=== PATIENT | female | born 1945 ===

== ENCOUNTER 2020-03-06 14:52 | Inpatient (IN) ==
[2020-03-06] MEDS ORDERED: DEXTROSE 50% 25 GM/50 ML VIAL IV PRN (21:48)
[2020-03-06] MEDS ORDERED: ONDANSETRON 4 MG/2 ML VIAL IV PRN (21:48)
[2020-03-06] MEDS ORDERED: GLUCAGON 1 MG VIAL IM PRN ×2 (21:48)
[2020-03-06] MEDS ORDERED: cefTRIAXone 1,000 MG in SODIUM CHLORIDE 0.9% 100 ML IV SCH (22:00)
[2020-03-06] MEDS ORDERED: AZITHROMYCIN INJ 500 MG in SODIUM CHLORIDE 0.9% 250 ML IV SCH (22:00)
[2020-03-07] MEDS: SODIUM CHLORIDE 0.9% 1,000 ML IV SCH ×2 (01:04→09:12)
[2020-03-07] MEDS: ENOXAPARIN 40 MG/0.4 ML SYRINGE SUBCUT SCH ×2 (01:18→22:32)
[2020-03-07 01:28] LABS: Calcium 8.7 MG/DL (8.5-10.1); Osmolality,Calculated 251.5 MOS/KG (273-304)
[2020-03-07 05:02] LABS: Basophils % 0.2 % (0.0-0.8); Hemoglobin 10.9 GM/DL (12.0-16.0); Immature Granulocytes % 0.6 %; Immature Granulocytes Absolute 0.03 #; Lymphocytes # 0.4 10*3/uL (1.4-4.0); Lymphocytes % 7.4 % (21.3-54.2); Mean Corpuscular HGB Conc 34.1 GM/DL (32-36); Mean Corpuscular Volume 88.2 FL (87-102); Mean Platelet Volume 10.4 FL (9.6-12.0); Monocytes % 8.4 % (1.7-12.7); Neutrophils % 83.4 % (38.7-73.9); Platelet Count 151 T/CUMM (130-400); Red Blood Count 3.63 MC/CUMM (3.8-5.5); Red Cell Distribution Width 12.5 % (9.3-17.3); White Blood Count 4.9 T/CUMM (4-12)
[2020-03-07 06:20] LABS: Apearance,Urine Slightly Hazy (Clear); Bilirubin,Urine Negative (Negative); Blood, Urine Negative (Negative); Glucose,Urine (UA) Negative (Negative); Ketones,Urine 20 mg/dL (Negative); Nitrite,Urine Negative (Negative); Protein,Urine 100 MG/DL; RBC,Urine 1 /HPF (0-4); Squamous Epithelial Cell,Urine Occasional /HPF (0-10); Urine Color Yellow (Yellow); Urine Specific Gravity 1.013 (1.001-1.035); Urine Urobilinogen < 2.0 EU/DL (0.2-1.0); WBC,Urine 1 /HPF (0-6)
[2020-03-07] MEDS: ACETAMINOPHEN 325 MG TABLET PO PRN (08:15)
[2020-03-07] MEDS: PANTOPRAZOLE 40 MG TABLET PO SCH (08:23)
[2020-03-07] MEDS: cefTRIAXone 1,000 MG in SYRINGE 1 EACH IV SCH (08:35)
[2020-03-07] MEDS: AZITHROMYCIN INJ 500 MG in SODIUM CHLORIDE 0.9% 250 ML IV SCH (08:36)
[2020-03-07 09:58] LABS: Band Neutrophils 4 % (0-10); Burr Cells 1+; Lymphocytes 2 % (20-55); Ovalocytes Few; Platelet Estimate Adequate; Segmented Neutrophils 92 % (50-85); Total Cells Counted 100
[2020-03-07 12:49] LABS: Albumin 2.3 G/DL (3.4-5.0); Bilirubin,Total 0.4 MG/DL (0.2-1.0); Calcium 7.3 MG/DL (8.5-10.1); Osmolality,Calculated 262.8 MOS/KG (273-304); Risk Ratio 1.64; Thyroid Stimulating Hormone 0.978 uIU/ml (0.358-3.74); Total Protein 6.2 G/DL (6.4-8.3); VLDL CHOLESTEROL 21.4 MG/DL
[2020-03-08 07:16] LABS: Basophils % 0.3 % (0.0-0.8); Hemoglobin 12.8 GM/DL (12.0-16.0); Immature Granulocytes % 1.1 %; Immature Granulocytes Absolute 0.07 #; Lymphocytes # 0.5 10*3/uL (1.4-4.0); Lymphocytes % 7.5 % (21.3-54.2); Mean Corpuscular HGB Conc 34.6 GM/DL (32-36); Mean Corpuscular Volume 86.4 FL (87-102); Mean Platelet Volume 10.1 FL (9.6-12.0); Monocytes % 6.5 % (1.7-12.7); Neutrophils % 84.6 % (38.7-73.9); Platelet Count 204 T/CUMM (130-400); Red Blood Count 4.28 MC/CUMM (3.8-5.5); Red Cell Distribution Width 12.9 % (9.3-17.3); White Blood Count 6.1 T/CUMM (4-12)
[2020-03-08 07:24] LABS: Calcium 7.7 MG/DL (8.5-10.1); Osmolality,Calculated 262.7 MOS/KG (273-304)
[2020-03-08] MEDS: AZITHROMYCIN INJ 500 MG in SODIUM CHLORIDE 0.9% 250 ML IV SCH (08:20)
[2020-03-08] MEDS: PANTOPRAZOLE 40 MG TABLET PO SCH (08:20)
[2020-03-08] MEDS: cefTRIAXone 1,000 MG in SYRINGE 1 EACH IV SCH (08:20)
[2020-03-08] MEDS: INSULIN REGULAR 100 UNIT/ML SUBCUT SCH ×2 (12:41→17:53)
[2020-03-08 12:51] LABS: Burr Cells Few; Ovalocytes Slight; Polychromasia Slight
[2020-03-08 12:52] LABS: Hypochromasia Slight; Platelet Estimate Adequate
[2020-03-08] MEDS: ENOXAPARIN 40 MG/0.4 ML SYRINGE SUBCUT SCH (21:32)
[2020-03-09] MEDS: INSULIN REGULAR 100 UNIT/ML SUBCUT SCH ×4 (00:11→17:20)
[2020-03-09] MEDS: cefTRIAXone 1,000 MG in SYRINGE 1 EACH IV SCH (08:00)
[2020-03-09] MEDS: PANTOPRAZOLE 40 MG TABLET PO SCH (08:00)
[2020-03-09] MEDS: AZITHROMYCIN INJ 500 MG in SODIUM CHLORIDE 0.9% 250 ML IV SCH (08:00)
[2020-03-09 08:57] LABS: Basophils % 0.1 % (0.0-0.8); Hematocrit 38.8 VOL% (35.7-47.0); Hemoglobin 13.1 GM/DL (12.0-16.0); Immature Granulocytes % 1.1 %; Immature Granulocytes Absolute 0.12 #; Lymphocytes # 0.5 10*3/uL (1.4-4.0); Lymphocytes % 5.1 % (21.3-54.2); Mean Corpuscular HGB Conc 33.8 GM/DL (32-36); Mean Corpuscular Volume 88.4 FL (87-102); Mean Platelet Volume 9.6 FL (9.6-12.0); Neutrophils % 85.7 % (38.7-73.9); Platelet Count 237 T/CUMM (130-400); Red Blood Count 4.39 MC/CUMM (3.8-5.5); Red Cell Distribution Width 12.9 % (9.3-17.3); White Blood Count 10.7 T/CUMM (4-12)
[2020-03-09 09:22] LABS: Calcium 8.2 MG/DL (8.5-10.1); Osmolality,Calculated 261.7 MOS/KG (273-304)
[2020-03-09] MEDS: ENOXAPARIN 40 MG/0.4 ML SYRINGE SUBCUT SCH ×2 (11:28→21:36)
[2020-03-10] MEDS: INSULIN REGULAR 100 UNIT/ML SUBCUT SCH ×4 (02:49→18:17)
[2020-03-10] MEDS: ACETAMINOPHEN 325 MG TABLET PO PRN ×2 (05:30→20:21)
[2020-03-10 06:33] LABS: Basophils % 0.2 % (0.0-0.8); Eosinophils % 0.2 % (0.00-10.9); Hematocrit 37.6 VOL% (35.7-47.0); Hemoglobin 12.6 GM/DL (12.0-16.0); Immature Granulocytes % 1.7 %; Immature Granulocytes Absolute 0.22 #; Lymphocytes # 0.5 10*3/uL (1.4-4.0); Lymphocytes % 3.5 % (21.3-54.2); Mean Corpuscular HGB Conc 33.5 GM/DL (32-36); Mean Corpuscular Volume 89.5 FL (87-102); Mean Platelet Volume 9.7 FL (9.6-12.0); Monocytes % 7.5 % (1.7-12.7); Neutrophils % 86.9 % (38.7-73.9); Platelet Count 253 T/CUMM (130-400); Red Cell Distribution Width 13.1 % (9.3-17.3)
[2020-03-10 06:39] LABS: Calcium 8.3 MG/DL (8.5-10.1); Osmolality,Calculated 275.1 MOS/KG (273-304)
[2020-03-10 06:54] LABS: Hypochromasia 1+; Lymphocytes 4 % (20-55); Platelet Estimate Adequate; Segmented Neutrophils 90 % (50-85); Total Cells Counted 100
[2020-03-10] MEDS: AZITHROMYCIN 250 MG TABLET PO SCH (08:52)
[2020-03-10] MEDS: PANTOPRAZOLE 40 MG TABLET PO SCH (08:52)
[2020-03-10] MEDS: cefTRIAXone 1,000 MG in SYRINGE 1 EACH IV SCH (08:52)
[2020-03-10] MEDS: ENOXAPARIN 40 MG/0.4 ML SYRINGE SUBCUT SCH ×2 (09:25→22:01)
[2020-03-10] MEDS: LACTATED RINGERS 1,000 ML IV SCH ×2 (09:40→17:40)
[2020-03-10 22:50] LABS: ABG Base Excess -8.8 MMOL/L (-2.5-2.5); ABG HCO3 17.3 MMOL/L (20-26); ABG Oxygen Saturation 83.4 % (95-100); ABG PCO2 27.6 MM HG (35-48); ABG PH 7.353 (7.35-7.45); ABG PO2 55.6 MM HG (80-95); ABG TCO2 13.1 MMOL/L (23-27)
[2020-03-11] MEDS: INSULIN REGULAR 100 UNIT/ML SUBCUT SCH ×4 (00:03→17:04)
[2020-03-11] MEDS: LACTATED RINGERS 1,000 ML IV SCH ×3 (00:08→16:56)
[2020-03-11 04:25] LABS: ABG Base Excess -1.6 MMOL/L (-2.5-2.5); ABG HCO3 22.8 MMOL/L (20-26); ABG Oxygen Saturation 85.7 % (95-100); ABG PCO2 35.3 MM HG (35-48); ABG PO2 56.6 MM HG (80-95); ABG TCO2 19.1 MMOL/L (23-27); Allen Test Positive; Pt O2 Delivery Device Other
[2020-03-11 06:29] LABS: Basophils % 0.2 % (0.0-0.8); Eosinophils # 0.1 10*3/uL (0.0-0.87); Eosinophils % 0.3 % (0.00-10.9); Hematocrit 41.1 VOL% (35.7-47.0); Hemoglobin 13.4 GM/DL (12.0-16.0); Immature Granulocytes % 2.1 %; Immature Granulocytes Absolute 0.37 #; Lymphocytes # 0.7 10*3/uL (1.4-4.0); Lymphocytes % 4.1 % (21.3-54.2); Mean Corpuscular HGB Conc 32.6 GM/DL (32-36); Mean Corpuscular Volume 91.3 FL (87-102); Mean Platelet Volume 9.9 FL (9.6-12.0); Monocytes % 6.3 % (1.7-12.7); NRBC # 0.02 10*3/uL; Platelet Count 176 T/CUMM (130-400); Red Cell Distribution Width 13.2 % (9.3-17.3); White Blood Count 17.7 T/CUMM (4-12)
[2020-03-11 06:46] LABS: Calcium 8.5 MG/DL (8.5-10.1); Osmolality,Calculated 279.8 MOS/KG (273-304)
[2020-03-11 06:53] LABS: Lymphocytes 7 % (20-55); Segmented Neutrophils 88 % (50-85); Total Cells Counted 100
[2020-03-11 06:54] LABS: Hypochromasia Slight; Microcytosis Slight; Polychromasia Slight
[2020-03-11 06:55] LABS: Platelet Estimate Adequate
[2020-03-11] MEDS: AZITHROMYCIN 250 MG TABLET PO SCH (08:47)
[2020-03-11] MEDS: cefTRIAXone 1,000 MG in SYRINGE 1 EACH IV SCH (08:47)
[2020-03-11] MEDS: PANTOPRAZOLE 40 MG TABLET PO SCH (08:48)
[2020-03-11] MEDS: ENOXAPARIN 40 MG/0.4 ML SYRINGE SUBCUT SCH ×2 (09:21→22:06)
[2020-03-11] MEDS ORDERED: ETOMIDATE 20 MG/10 ML VIAL IV ONE (09:50)
[2020-03-11] MEDS ORDERED: SUCCINYLCHOLINE 200 MG/10 ML VIAL IV ONE (09:50)
[2020-03-11] MEDS ORDERED: SODIUM CHLORIDE 0.9% 1,000 ML IV ONE (10:12)
[2020-03-11] MEDS: ROCURONIUM 500 MG in SODIUM CHLORIDE 0.9% 500 ML IV PRN ×2 (10:45→15:32)
[2020-03-11] MEDS: fentaNYL INJ 1,250 MCG in SODIUM CHLORIDE 0.9% 225 ML IV PRN (10:48)
[2020-03-11] MEDS ORDERED: fentaNYL 100 MCG/2 ML VIAL IV ONE (11:00)
[2020-03-11] MEDS ORDERED: ROCURONIUM 100 MG/10 ML VIAL IV ONE (11:00)
[2020-03-11] MEDS ORDERED: SODIUM CHLORIDE 0.9% 1,000 ML IV PRN (12:24)
[2020-03-11] MEDS ORDERED: DIGOXIN 0.5 MG/2 ML AMP IV ONE ×2 (16:18→18:00)
[2020-03-12] MEDS: LACTATED RINGERS 1,000 ML IV SCH ×3 (00:56→18:29)
[2020-03-12] MEDS: INSULIN REGULAR 100 UNIT/ML SUBCUT SCH ×4 (02:04→17:27)
[2020-03-12] MEDS: ROCURONIUM 500 MG in SODIUM CHLORIDE 0.9% 500 ML IV PRN ×2 (03:15→14:15)
[2020-03-12 04:39] LABS: ABG HCO3 18.7 MMOL/L (20-26); ABG Oxygen Saturation 99.4 % (95-100); ABG PCO2 55.4 MM HG (35-48)
[2020-03-12] MEDS: fentaNYL INJ 1,250 MCG in SODIUM CHLORIDE 0.9% 225 ML IV PRN ×2 (04:50→18:22)
[2020-03-12 04:58] LABS: Basophils % 0.1 % (0.0-0.8); Eosinophils # 0.2 10*3/uL (0.0-0.87); Eosinophils % 1.7 % (0.00-10.9); Hematocrit 35.9 VOL% (35.7-47.0); Hemoglobin 10.9 GM/DL (12.0-16.0); Immature Granulocytes % 1.6 %; Immature Granulocytes Absolute 0.19 #; Lymphocytes # 0.5 10*3/uL (1.4-4.0); Lymphocytes % 4.2 % (21.3-54.2); Mean Corpuscular HGB Conc 30.4 GM/DL (32-36); Mean Corpuscular Volume 98.6 FL (87-102); Mean Platelet Volume 10.5 FL (9.6-12.0); Monocytes % 5.9 % (1.7-12.7); NRBC # 0.02 10*3/uL; Neutrophils % 86.5 % (38.7-73.9); Platelet Count 128 T/CUMM (130-400); Red Blood Count 3.64 MC/CUMM (3.8-5.5); Red Cell Distribution Width 13.7 % (9.3-17.3); White Blood Count 11.6 T/CUMM (4-12)
[2020-03-12 05:37] LABS: Eosinophils 1 % (0-10); Lymphocytes 5 % (20-55); Segmented Neutrophils 91 % (50-85); Total Cells Counted 100
[2020-03-12 05:38] LABS: Hypochromasia 1+; Microcytosis Slight; Ovalocytes Slight; Platelet Estimate Normal
[2020-03-12 07:14] LABS: Osmolality,Calculated 285.7 MOS/KG (273-304)
[2020-03-12] MEDS: cefTRIAXone 1,000 MG in SYRINGE 1 EACH IV SCH (08:40)
[2020-03-12] MEDS: ENOXAPARIN 40 MG/0.4 ML SYRINGE SUBCUT SCH ×2 (09:00→22:20)
[2020-03-12] MEDS: PANTOPRAZOLE 40 MG TABLET PO SCH (12:14)
[2020-03-12] MEDS: DIGOXIN 0.5 MG/2 ML AMP IV SCH (12:15)
[2020-03-13] MEDS: INSULIN REGULAR 100 UNIT/ML SUBCUT SCH ×4 (01:16→17:43)
[2020-03-13] MEDS: ROCURONIUM 500 MG in SODIUM CHLORIDE 0.9% 500 ML IV PRN ×2 (01:51→16:02)
[2020-03-13] MEDS: LACTATED RINGERS 1,000 ML IV SCH ×3 (02:57→20:44)
[2020-03-13 05:18] LABS: ABG Base Excess -7.9 MMOL/L (-2.5-2.5); ABG HCO3 18.8 MMOL/L (20-26); ABG Oxygen Saturation 98.2 % (95-100); ABG PCO2 43.2 MM HG (35-48); ABG PH 7.257 (7.35-7.45); ABG PO2 147.4 MM HG (80-95); ABG TCO2 20.1 MMOL/L (23-27)
[2020-03-13 05:35] LABS: Basophils % 0.3 % (0.0-0.8); Eosinophils # 0.2 10*3/uL (0.0-0.87); Eosinophils % 2.4 % (0.00-10.9); Hemoglobin 9.7 GM/DL (12.0-16.0); Immature Granulocytes % 1.8 %; Immature Granulocytes Absolute 0.14 #; Lymphocytes # 0.5 10*3/uL (1.4-4.0); Lymphocytes % 6.3 % (21.3-54.2); Mean Corpuscular HGB Conc 31.3 GM/DL (32-36); Monocytes % 10.1 % (1.7-12.7); Neutrophils % 79.1 % (38.7-73.9); Platelet Count 157 T/CUMM (130-400); Red Blood Count 3.23 MC/CUMM (3.8-5.5); Red Cell Distribution Width 13.6 % (9.3-17.3); White Blood Count 7.6 T/CUMM (4-12)
[2020-03-13 06:06] LABS: Calcium 8.1 MG/DL (8.5-10.1); Osmolality,Calculated 290.5 MOS/KG (273-304)
[2020-03-13] MEDS: cefTRIAXone 1,000 MG in SYRINGE 1 EACH IV SCH (08:29)
[2020-03-13] MEDS: DIGOXIN 0.5 MG/2 ML AMP IV SCH (08:30)
[2020-03-13] MEDS: PANTOPRAZOLE 40 MG VIAL IV SCH (08:35)
[2020-03-13] MEDS: ENOXAPARIN 40 MG/0.4 ML SYRINGE SUBCUT SCH (09:00)
[2020-03-13] MEDS: fentaNYL INJ 1,250 MCG in SODIUM CHLORIDE 0.9% 225 ML IV PRN ×2 (09:42→23:02)
[2020-03-13] MEDS ORDERED: ENOXAPARIN 40 MG/0.4 ML SYRINGE SUBCUT SCH (10:00)
[2020-03-13] MEDS: CARBIDOPA/LEVODOPA 25-100 MG TABLET PO SCH (20:44)
[2020-03-13] MEDS: levETIRAcetam LIQUID 100 MG/ML 30 ML/BOTTLE PO SCH (20:44)
[2020-03-13] MEDS: SODIUM BICARB INJ 50 MEQ in SODIUM CHLORIDE 0.45% 1,000 ML IV SCH (20:44)
[2020-03-14] MEDS: LACTATED RINGERS 1,000 ML IV SCH ×3 (01:37→17:24)
[2020-03-14] MEDS: INSULIN REGULAR 100 UNIT/ML SUBCUT SCH ×5 (01:37→17:28)
[2020-03-14 05:35] LABS: ABG Base Excess -10.9 MMOL/L (-2.5-2.5); ABG HCO3 18.8 MMOL/L (20-26); ABG Oxygen Saturation 97.3 % (95-100); ABG PCO2 60.8 MM HG (35-48); ABG PO2 113.6 MM HG (80-95); ABG TCO2 20.7 MMOL/L (23-27)
[2020-03-14 05:37] LABS: ABG PH 7.108 (7.35-7.45)
[2020-03-14 05:39] LABS: Basophils % 0.3 % (0.0-0.8); Eosinophils % 0.4 % (0.00-10.9); Hematocrit 35.1 VOL% (35.7-47.0); Hemoglobin 10.7 GM/DL (12.0-16.0); Immature Granulocytes % 2.9 %; Immature Granulocytes Absolute 0.32 #; Lymphocytes # 0.3 10*3/uL (1.4-4.0); Lymphocytes % 3.1 % (21.3-54.2); Mean Corpuscular HGB Conc 30.5 GM/DL (32-36); Mean Corpuscular Volume 99.4 FL (87-102); Mean Platelet Volume 10.3 FL (9.6-12.0); Monocytes % 12.9 % (1.7-12.7); NRBC # 0.02 10*3/uL; Neutrophils % 80.4 % (38.7-73.9); Platelet Count 237 T/CUMM (130-400); Red Blood Count 3.53 MC/CUMM (3.8-5.5); Red Cell Distribution Width 13.7 % (9.3-17.3); White Blood Count 10.9 T/CUMM (4-12)
[2020-03-14 06:01] LABS: Calcium 8.7 MG/DL (8.5-10.1)
[2020-03-14] MEDS ORDERED: SODIUM BICARBONATE 50 MEQ/50 ML VIAL IV ONE (06:10)
[2020-03-14] MEDS ORDERED: SODIUM POLYSTYRENE SULFATE 15 GM/60 ML BOTTLE PO ONE (06:44)
[2020-03-14 06:57] LABS: Lymphocytes 5 % (20-55); Microcytosis Slight; Platelet Estimate Adequate; Segmented Neutrophils 76 % (50-85); Total Cells Counted 100
[2020-03-14] MEDS: PANTOPRAZOLE 40 MG VIAL IV SCH (08:02)
[2020-03-14 08:03] LABS: ABG Base Excess -5.9 MMOL/L (-2.5-2.5); ABG HCO3 19.6 MMOL/L (20-26); ABG Oxygen Saturation 98.9 % (95-100); ABG PCO2 43.6 MM HG (35-48); ABG PH 7.282 (7.35-7.45); ABG TCO2 19.2 MMOL/L (23-27)
[2020-03-14] MEDS: CARBIDOPA/LEVODOPA 25-100 MG TABLET PO SCH ×3 (08:03→21:04)
[2020-03-14] MEDS: cefTRIAXone 1,000 MG in SYRINGE 1 EACH IV SCH (08:03)
[2020-03-14] MEDS: DIGOXIN 0.5 MG/2 ML AMP IV SCH (08:03)
[2020-03-14] MEDS: levETIRAcetam LIQUID 100 MG/ML 30 ML/BOTTLE PO SCH ×2 (08:04→21:04)
[2020-03-14] MEDS: ROCURONIUM 500 MG in SODIUM CHLORIDE 0.9% 500 ML IV PRN ×2 (08:57→23:26)
[2020-03-14] MEDS: SODIUM BICARB INJ 50 MEQ in SODIUM CHLORIDE 0.45% 1,000 ML IV SCH (09:28)
[2020-03-14] MEDS: ENOXAPARIN 30 MG/0.3 ML SYRINGE SUBCUT SCH (09:39)
[2020-03-14] MEDS ORDERED: fentaNYL INJ 2,500 MCG in SODIUM CHLORIDE 0.9% 450 ML IV PRN (12:29)
[2020-03-14] MEDS: fentaNYL INJ 1,250 MCG in SODIUM CHLORIDE 0.9% 225 ML IV PRN (13:15)
[2020-03-14] MEDS ORDERED: SODIUM POLYSTYRENE SULFATE 15 GM/60 ML BOTTLE PO PRN (14:52)
[2020-03-14] MEDS: SODIUM BICARB INJ 100 MEQ in SODIUM CHLORIDE 0.45% 1,000 ML IV SCH (17:24)
[2020-03-15] MEDS: INSULIN REGULAR 100 UNIT/ML SUBCUT SCH ×5 (00:35→23:50)
[2020-03-15] MEDS: LACTATED RINGERS 1,000 ML IV SCH ×2 (00:35→09:37)
[2020-03-15] MEDS: fentaNYL INJ 1,250 MCG in SODIUM CHLORIDE 0.9% 225 ML IV PRN (04:42)
[2020-03-15 05:22] LABS: ABG Base Excess -5.9 MMOL/L (-2.5-2.5); ABG HCO3 19.6 MMOL/L (20-26); ABG Oxygen Saturation 97.7 % (95-100); ABG PCO2 51.9 MM HG (35-48); ABG PH 7.231 (7.35-7.45); ABG TCO2 20.6 MMOL/L (23-27)
[2020-03-15] MEDS: SODIUM BICARB INJ 100 MEQ in SODIUM CHLORIDE 0.45% 1,000 ML IV SCH ×2 (05:26→13:49)
[2020-03-15 05:34] LABS: Basophils % 0.1 % (0.0-0.8); Eosinophils # 0.1 10*3/uL (0.0-0.87); Eosinophils % 1.3 % (0.00-10.9); Hematocrit 29.3 VOL% (35.7-47.0); Hemoglobin 9.3 GM/DL (12.0-16.0); Immature Granulocytes % 2.8 %; Immature Granulocytes Absolute 0.25 #; Lymphocytes # 0.3 10*3/uL (1.4-4.0); Lymphocytes % 3.3 % (21.3-54.2); Mean Corpuscular HGB Conc 31.7 GM/DL (32-36); Mean Corpuscular Volume 98.3 FL (87-102); Mean Platelet Volume 10.6 FL (9.6-12.0); Monocytes % 10.9 % (1.7-12.7); Neutrophils % 81.6 % (38.7-73.9); Platelet Count 223 T/CUMM (130-400); Red Blood Count 2.98 MC/CUMM (3.8-5.5); Red Cell Distribution Width 13.7 % (9.3-17.3)
[2020-03-15 05:59] LABS: Band Neutrophils 6 % (0-10); Eosinophils 2 % (0-10); Hypochromasia 1+; Lymphocytes 2 % (20-55); Ovalocytes Slight; Platelet Estimate Adequate; Segmented Neutrophils 74 % (50-85); Total Cells Counted 100
[2020-03-15 06:00] LABS: Microcytosis Slight
[2020-03-15 06:12] LABS: Alanine Aminotransferase < 6 U/L (13-56); Albumin 1.2 G/DL (3.4-5.0); Alkaline Phosphatase 113 U/L (45-117); Aspartate Amino Transferase 33 U/L (0-37); Bilirubin,Total < 0.39 MG/DL (0.2-1.0); Blood Urea Nitrogen 97 MG/DL (7-18); Calcium 7.9 MG/DL (8.5-10.1); Estimated Glom Filtration Rate 10 ML/MIN; Glucose 178 MG/DL (74-106); Osmolality,Calculated 312.4 MOS/KG (273-304); Total Protein 5.1 G/DL (6.4-8.3)
[2020-03-15] MEDS: CARBIDOPA/LEVODOPA 25-100 MG TABLET PO SCH ×3 (08:12→20:21)
[2020-03-15] MEDS: DIGOXIN 0.5 MG/2 ML AMP IV SCH (08:14)
[2020-03-15] MEDS: levETIRAcetam LIQUID 100 MG/ML 30 ML/BOTTLE PO SCH ×2 (08:14→20:21)
[2020-03-15] MEDS: PANTOPRAZOLE 40 MG VIAL IV SCH (08:17)
[2020-03-15] MEDS: ENOXAPARIN 30 MG/0.3 ML SYRINGE SUBCUT SCH (09:01)
[2020-03-15] MEDS ORDERED: ROCURONIUM 1,000 MG in SODIUM CHLORIDE 0.9% 175 ML IV PRN (15:11)
[2020-03-15] MEDS: ROCURONIUM 500 MG in SODIUM CHLORIDE 0.9% 500 ML IV PRN (16:23)
[2020-03-15] MEDS: SODIUM BICARB INJ 150 MEQ in STERILE WATER INJ 850 ML IV SCH (16:23)
[2020-03-15] MEDS: fentaNYL INJ 2,500 MCG in SODIUM CHLORIDE 0.9% 75 ML IV PRN (20:53)
[2020-03-16 04:02] LABS: ABG Base Excess -1.3 MMOL/L (-2.5-2.5); ABG HCO3 23.4 MMOL/L (20-26); ABG PCO2 49.5 MM HG (35-48); ABG PH 7.315 (7.35-7.45); ABG TCO2 23.5 MMOL/L (23-27)
[2020-03-16 04:28] LABS: Basophils % 0.2 % (0.0-0.8); Eosinophils # 0.1 10*3/uL (0.0-0.87); Eosinophils % 1.2 % (0.00-10.9); Hemoglobin 8.8 GM/DL (12.0-16.0); Immature Granulocytes % 3.1 %; Immature Granulocytes Absolute 0.29 #; Lymphocytes # 0.3 10*3/uL (1.4-4.0); Lymphocytes % 2.9 % (21.3-54.2); Mean Corpuscular HGB Conc 32.6 GM/DL (32-36); Mean Corpuscular Volume 97.1 FL (87-102); Mean Platelet Volume 10.7 FL (9.6-12.0); Monocytes % 10.7 % (1.7-12.7); Neutrophils % 81.9 % (38.7-73.9); Platelet Count 217 T/CUMM (130-400); Red Blood Count 2.78 MC/CUMM (3.8-5.5); Red Cell Distribution Width 13.5 % (9.3-17.3); White Blood Count 9.4 T/CUMM (4-12)
[2020-03-16 04:40] LABS: Calcium 7.9 MG/DL (8.5-10.1); Osmolality,Calculated 313.5 MOS/KG (273-304)
[2020-03-16 04:56] LABS: Hypochromasia 1+; Microcytosis Slight; Nucleated Red Blood Cells 2 (0-5); Platelet Estimate Adequate; Segmented Neutrophils 91 % (50-85); Total Cells Counted 100
[2020-03-16] MEDS: INSULIN REGULAR 100 UNIT/ML SUBCUT SCH ×4 (05:02→23:29)
[2020-03-16] MEDS: HEPARIN DRIP 25,000 UNITS/500 ML PREMIX IV SCH (05:52)
[2020-03-16] MEDS: fentaNYL INJ 2,500 MCG in SODIUM CHLORIDE 0.9% 75 ML IV PRN ×2 (06:27→20:25)
[2020-03-16] MEDS: PANTOPRAZOLE 40 MG VIAL IV SCH (08:37)
[2020-03-16] MEDS: DIGOXIN 0.5 MG/2 ML AMP IV SCH (08:38)
[2020-03-16] MEDS: CARBIDOPA/LEVODOPA 25-100 MG TABLET PO SCH ×3 (08:39→21:34)
[2020-03-16] MEDS: SODIUM BICARB INJ 150 MEQ in STERILE WATER INJ 850 ML IV SCH (09:12)
[2020-03-16] MEDS: levETIRAcetam LIQUID 100 MG/ML 30 ML/BOTTLE PO SCH ×2 (12:02→21:34)
[2020-03-16] MEDS: SODIUM BICARBONATE 650 MG TABLET PER TUBE SCH (21:34)
[2020-03-17] MEDS: INSULIN REGULAR 100 UNIT/ML SUBCUT SCH ×5 (00:30→17:06)
[2020-03-17] MEDS: HEPARIN DRIP 25,000 UNITS/500 ML PREMIX IV SCH ×2 (02:20→21:55)
[2020-03-17 05:37] LABS: ABG Base Excess 0.1 MMOL/L (-2.5-2.5); ABG HCO3 25.9 MMOL/L (20-26); ABG Oxygen Saturation 98.2 % (95-100); ABG PCO2 47.7 MM HG (35-48); ABG PH 7.353 (7.35-7.45); ABG PO2 140.9 MM HG (80-95); ABG TCO2 27.4 MMOL/L (23-27)
[2020-03-17 06:18] LABS: Basophils % 0.3 % (0.0-0.8); Eosinophils # 0.1 10*3/uL (0.0-0.87); Eosinophils % 1.1 % (0.00-10.9); Hematocrit 26.5 VOL% (35.7-47.0); Hemoglobin 8.6 GM/DL (12.0-16.0); Immature Granulocytes Absolute 0.58 #; Lymphocytes # 0.5 10*3/uL (1.4-4.0); Lymphocytes % 3.9 % (21.3-54.2); Mean Corpuscular HGB Conc 32.5 GM/DL (32-36); Mean Platelet Volume 11.3 FL (9.6-12.0); Monocytes % 11.1 % (1.7-12.7); NRBC # 0.02 10*3/uL; Neutrophils % 78.6 % (38.7-73.9); Platelet Count 272 T/CUMM (130-400); Red Blood Count 2.76 MC/CUMM (3.8-5.5); Red Cell Distribution Width 13.6 % (9.3-17.3); White Blood Count 11.5 T/CUMM (4-12)
[2020-03-17 06:37] LABS: Band Neutrophils 3 % (0-10); Eosinophils 2 % (0-10); Lymphocytes 3 % (20-55); Segmented Neutrophils 80 % (50-85); Total Cells Counted 100
[2020-03-17 06:38] LABS: Hypochromasia 1+; Microcytosis Slight; Platelet Estimate Adequate
[2020-03-17 07:43] LABS: Calcium 7.2 MG/DL (8.5-10.1); Osmolality,Calculated 315.7 MOS/KG (273-304)
[2020-03-17] MEDS: fentaNYL INJ 2,500 MCG in SODIUM CHLORIDE 0.9% 75 ML IV PRN (08:18)
[2020-03-17] MEDS: PANTOPRAZOLE 40 MG VIAL IV SCH (08:30)
[2020-03-17] MEDS: levETIRAcetam LIQUID 100 MG/ML 30 ML/BOTTLE PO SCH ×2 (08:30→21:41)
[2020-03-17] MEDS: CARBIDOPA/LEVODOPA 25-100 MG TABLET PO SCH ×3 (08:30→21:42)
[2020-03-17] MEDS: DIGOXIN 0.5 MG/2 ML AMP IV SCH (08:30)
[2020-03-17] MEDS: SODIUM BICARBONATE 650 MG TABLET PER TUBE SCH ×3 (08:30→21:42)
[2020-03-18] MEDS: INSULIN REGULAR 100 UNIT/ML SUBCUT SCH ×4 (01:31→17:24)
[2020-03-18 04:20] LABS: ABG Base Excess 1.3 MMOL/L (-2.5-2.5); ABG HCO3 25.6 MMOL/L (20-26); ABG Oxygen Saturation 98.8 % (95-100); ABG PCO2 50.5 MM HG (35-48); ABG PH 7.346 (7.35-7.45); ABG TCO2 25.3 MMOL/L (23-27)
[2020-03-18 04:25] LABS: Basophils % 0.3 % (0.0-0.8); Eosinophils # 0.1 10*3/uL (0.0-0.87); Eosinophils % 0.9 % (0.00-10.9); Hematocrit 27.4 VOL% (35.7-47.0); Hemoglobin 8.6 GM/DL (12.0-16.0); Immature Granulocytes % 5.1 %; Immature Granulocytes Absolute 0.63 #; Lymphocytes # 0.4 10*3/uL (1.4-4.0); Lymphocytes % 3.3 % (21.3-54.2); Mean Corpuscular HGB Conc 31.4 GM/DL (32-36); Mean Corpuscular Volume 95.8 FL (87-102); Mean Platelet Volume 10.6 FL (9.6-12.0); Monocytes % 13.9 % (1.7-12.7); Neutrophils % 76.5 % (38.7-73.9); Platelet Count 328 T/CUMM (130-400); Red Blood Count 2.86 MC/CUMM (3.8-5.5); Red Cell Distribution Width 13.6 % (9.3-17.3); White Blood Count 12.3 T/CUMM (4-12)
[2020-03-18 04:45] LABS: Calcium 7.1 MG/DL (8.5-10.1); Osmolality,Calculated 321.7 MOS/KG (273-304)
[2020-03-18 05:00] LABS: Band Neutrophils 2 % (0-10); Eosinophils 1 % (0-10); Lymphocytes 7 % (20-55); Nucleated Red Blood Cells 1 (0-5); Platelet Estimate Adequate; Segmented Neutrophils 78 % (50-85); Total Cells Counted 100
[2020-03-18 05:01] LABS: Hypochromasia 1+
[2020-03-18] MEDS: HEPARIN DRIP 25,000 UNITS/500 ML PREMIX IV SCH ×2 (05:25→16:45)
[2020-03-18] MEDS: fentaNYL INJ 2,500 MCG in SODIUM CHLORIDE 0.9% 75 ML IV PRN ×2 (05:30→17:20)
[2020-03-18] MEDS: levETIRAcetam LIQUID 100 MG/ML 30 ML/BOTTLE PO SCH ×2 (08:17→21:35)
[2020-03-18] MEDS: DIGOXIN 0.5 MG/2 ML AMP IV SCH (08:18)
[2020-03-18] MEDS: CARBIDOPA/LEVODOPA 25-100 MG TABLET PO SCH ×3 (08:19→21:35)
[2020-03-18] MEDS: SODIUM BICARBONATE 650 MG TABLET PER TUBE SCH ×3 (08:19→21:35)
[2020-03-18] MEDS: PANTOPRAZOLE 40 MG VIAL IV SCH (08:19)
[2020-03-18] MEDS ORDERED: MORPHINE 4 MG/1 ML VIAL IV PRN (10:11)
[2020-03-18] MEDS: MORPHINE 4 MG/1 ML VIAL IV PRN ×2 (10:54→21:40)
[2020-03-19] MEDS: INSULIN REGULAR 100 UNIT/ML SUBCUT SCH ×4 (00:23→17:38)
[2020-03-19] MEDS: levETIRAcetam LIQUID 100 MG/ML 30 ML/BOTTLE PO SCH ×2 (08:11→20:55)
[2020-03-19] MEDS: DIGOXIN 0.5 MG/2 ML AMP IV SCH (08:11)
[2020-03-19] MEDS: PANTOPRAZOLE 40 MG VIAL IV SCH (08:12)
[2020-03-19] MEDS: CARBIDOPA/LEVODOPA 25-100 MG TABLET PO SCH ×3 (08:12→20:55)
[2020-03-19] MEDS: SODIUM BICARBONATE 650 MG TABLET PER TUBE SCH ×3 (08:12→20:55)
[2020-03-19 08:58] LABS: ABG Base Excess 6.1 MMOL/L (-2.5-2.5); ABG Oxygen Saturation 99.1 % (95-100); ABG PCO2 50.2 MM HG (35-48); ABG PH 7.408 (7.35-7.45); ABG TCO2 29.2 MMOL/L (23-27)
[2020-03-19 09:13] LABS: Basophils # 0.1 10*3/uL (0.0-0.2); Basophils % 0.4 % (0.0-0.8); Eosinophils # 0.2 10*3/uL (0.0-0.87); Hematocrit 27.2 VOL% (35.7-47.0); Hemoglobin 8.6 GM/DL (12.0-16.0); Immature Granulocytes % 5.5 %; Immature Granulocytes Absolute 0.89 #; Lymphocytes # 0.5 10*3/uL (1.4-4.0); Lymphocytes % 2.8 % (21.3-54.2); Mean Corpuscular HGB Conc 31.6 GM/DL (32-36); Mean Corpuscular Volume 96.8 FL (87-102); Monocytes % 11.6 % (1.7-12.7); NRBC # 0.06 10*3/uL; Neutrophils % 78.7 % (38.7-73.9); Platelet Count 340 T/CUMM (130-400); Red Blood Count 2.81 MC/CUMM (3.8-5.5); Red Cell Distribution Width 13.8 % (9.3-17.3); White Blood Count 16.2 T/CUMM (4-12)
[2020-03-19] MEDS ORDERED: MORPHINE 4 MG/1 ML VIAL IV ONE (09:15)
[2020-03-19 09:23] LABS: Calcium 7.9 MG/DL (8.5-10.1); Osmolality,Calculated 343.7 MOS/KG (273-304)
[2020-03-19 10:09] LABS: Band Neutrophils 16 % (0-10); Eosinophils 5 % (0-10); Lymphocytes 6 % (20-55); Metamyelocytes 1 %; Myelocytes 2 %; Platelet Estimate Normal; Segmented Neutrophils 60 % (50-85); Total Cells Counted 100
[2020-03-19 10:10] LABS: Basophilic Stippling Slight; Smudge Cells Few
[2020-03-19 10:11] LABS: Anisocytosis 1+; Macrocytosis Slight
[2020-03-19] MEDS: HEPARIN DRIP 25,000 UNITS/500 ML PREMIX IV SCH (11:03)
[2020-03-19] MEDS: PIPERACILLIN/TAZOBACTAM 3,375 MG in SODIUM CHLORIDE 0.9% 100 ML IV SCH ×2 (11:08→22:51)
[2020-03-19] MEDS: ACETAMINOPHEN 325 MG TABLET PO PRN (11:59)
[2020-03-19] MEDS ORDERED: VANCOMYCIN INJ 1,500 MG in SODIUM CHLORIDE 0.9% 500 ML IV ONE (12:00)
[2020-03-19 12:31] LABS: Apearance,Urine CLOUDY (Clear); Bilirubin,Urine Negative (Negative); Blood, Urine Moderate mg/dL (Negative); Glucose,Urine (UA) 50 mg/dL (Negative); Ketones,Urine Negative (Negative); Mucus,Urine Few /LPF (Occasional); Nitrite,Urine Negative (Negative); Protein,Urine Negative; RBC,Urine 31 /HPF (0-4); Squamous Epithelial Cell,Urine Moderate /HPF (0-10); Urine Color Yellow (Yellow); Urine Urobilinogen < 2.0 EU/DL (0.2-1.0); WBC,Urine 45 /HPF (0-6)
[2020-03-20] MEDS: INSULIN REGULAR 100 UNIT/ML SUBCUT SCH ×5 (01:27→17:00)
[2020-03-20 04:00] LABS: Basophils # 0.1 10*3/uL (0.0-0.2); Basophils % 0.3 % (0.0-0.8); Eosinophils # 0.1 10*3/uL (0.0-0.87); Eosinophils % 0.5 % (0.00-10.9); Hematocrit 26.6 VOL% (35.7-47.0); Immature Granulocytes % 4.9 %; Immature Granulocytes Absolute 0.91 #; Lymphocytes # 0.5 10*3/uL (1.4-4.0); Lymphocytes % 2.6 % (21.3-54.2); Mean Corpuscular HGB Conc 30.1 GM/DL (32-36); Mean Corpuscular Volume 102.3 FL (87-102); Mean Platelet Volume 11.6 FL (9.6-12.0); NRBC # 0.07 10*3/uL; Neutrophils % 78.7 % (38.7-73.9); Platelet Count 316 T/CUMM (130-400); Red Cell Distribution Width 14.1 % (9.3-17.3); White Blood Count 18.6 T/CUMM (4-12)
[2020-03-20 04:16] LABS: Calcium 7.9 MG/DL (8.5-10.1); Osmolality,Calculated 335.1 MOS/KG (273-304)
[2020-03-20] MEDS: HEPARIN DRIP 25,000 UNITS/500 ML PREMIX IV SCH (04:50)
[2020-03-20 05:29] LABS: Band Neutrophils 7 % (0-10); Eosinophils 1 % (0-10); Lymphocytes 3 % (20-55); Metamyelocytes 1 %; Nucleated Red Blood Cells 1 (0-5); Platelet Estimate Normal; Segmented Neutrophils 77 % (50-85); Total Cells Counted 100
[2020-03-20 05:31] LABS: Macrocytosis Slight; Polychromasia Few; Stomatocytes Slight
[2020-03-20 05:32] LABS: Hypochromasia Slight
[2020-03-20 07:38] LABS: ABG Base Excess 10.6 MMOL/L (-2.5-2.5); ABG HCO3 34.3 MMOL/L (20-26); ABG Oxygen Saturation 98.2 % (95-100); ABG PCO2 57.9 MM HG (35-48); ABG PH 7.415 (7.35-7.45); ABG TCO2 33.8 MMOL/L (23-27)
[2020-03-20] MEDS ORDERED: VANCOMYCIN INJ 1,500 MG in SODIUM CHLORIDE 0.9% 500 ML IV PRN (07:50)
[2020-03-20] MEDS: PANTOPRAZOLE 40 MG VIAL IV SCH (08:40)
[2020-03-20] MEDS: CARBIDOPA/LEVODOPA 25-100 MG TABLET PO SCH ×3 (08:40→20:37)
[2020-03-20] MEDS: levETIRAcetam LIQUID 100 MG/ML 30 ML/BOTTLE PO SCH ×2 (08:40→20:37)
[2020-03-20] MEDS: DIGOXIN 0.5 MG/2 ML AMP IV SCH (08:40)
[2020-03-20] MEDS: SODIUM BICARBONATE 650 MG TABLET PER TUBE SCH (08:40)
[2020-03-20] MEDS ORDERED: POTASSIUM CHLORIDE 20 MEQ/15 ML UDCUP PER TUBE ONE (09:30)
[2020-03-20] MEDS: hydrALAZINE 20 MG/1 ML VIAL IV PRN (10:45)
[2020-03-20] MEDS: amLODIPine 10 MG TABLET PER TUBE SCH ×2 (11:00)
[2020-03-20] MEDS: PIPERACILLIN/TAZOBACTAM 3,375 MG in SODIUM CHLORIDE 0.9% 100 ML IV SCH (11:52)
[2020-03-20] MEDS ORDERED: fentaNYL INJ 2,500 MCG in DEXTROSE 5% 75 ML IV PRN (13:30)
[2020-03-20] MEDS ORDERED: VANCOMYCIN INJ 1,500 MG in SODIUM CHLORIDE 0.9% 500 ML IV ONE (14:00)
[2020-03-20] MEDS: ACETAMINOPHEN 325 MG TABLET PO PRN ×2 (16:26→21:25)
[2020-03-20] MEDS: INSULIN GLARGINE 100 UNIT/ML SUBCUT SCH (20:37)
[2020-03-21] MEDS: HEPARIN DRIP 25,000 UNITS/500 ML PREMIX IV SCH ×3 (00:08→17:45)
[2020-03-21] MEDS: PIPERACILLIN/TAZOBACTAM 3,375 MG in DEXTROSE 5% 100 ML IV SCH ×2 (00:25→10:32)
[2020-03-21] MEDS: INSULIN REGULAR 100 UNIT/ML SUBCUT SCH ×4 (01:48→17:34)
[2020-03-21 04:22] LABS: ABG Base Excess 12.9 MMOL/L (-2.5-2.5); ABG HCO3 36.4 MMOL/L (20-26); ABG Oxygen Saturation 96.9 % (95-100); ABG PCO2 42.7 MM HG (35-48); ABG PH 7.549 (7.35-7.45); ABG PO2 93.1 MM HG (80-95); ABG TCO2 37.7 MMOL/L (23-27); Allen Test Positive; Pt O2 Delivery Device Ventilator
[2020-03-21] MEDS: ACETAMINOPHEN 325 MG TABLET PO PRN (05:19)
[2020-03-21 05:32] LABS: Basophils # 0.1 10*3/uL (0.0-0.2); Basophils % 0.2 % (0.0-0.8); Eosinophils # 0.1 10*3/uL (0.0-0.87); Eosinophils % 0.3 % (0.00-10.9); Hematocrit 25.7 VOL% (35.7-47.0); Hemoglobin 7.5 GM/DL (12.0-16.0); Immature Granulocytes % 2.7 %; Immature Granulocytes Absolute 0.63 #; Lymphocytes # 1.3 10*3/uL (1.4-4.0); Lymphocytes % 5.7 % (21.3-54.2); Mean Corpuscular HGB Conc 29.2 GM/DL (32-36); Mean Corpuscular Volume 103.2 FL (87-102); Mean Platelet Volume 10.9 FL (9.6-12.0); Monocytes % 12.4 % (1.7-12.7); NRBC # 0.42 10*3/uL; Neutrophils % 78.7 % (38.7-73.9); Platelet Count 299 T/CUMM (130-400); Red Blood Count 2.49 MC/CUMM (3.8-5.5); Red Cell Distribution Width 14.6 % (9.3-17.3)
[2020-03-21 05:52] LABS: Calcium 7.9 MG/DL (8.5-10.1); Osmolality,Calculated 350.6 MOS/KG (273-304)
[2020-03-21 06:24] LABS: Band Neutrophils 17 % (0-10); Eosinophils 1 % (0-10); Lymphocytes 4 % (20-55); Metamyelocytes 1 %; Nucleated Red Blood Cells 2 (0-5); Segmented Neutrophils 66 % (50-85); Total Cells Counted 100
[2020-03-21 06:25] LABS: Anisocytosis 1+; Macrocytosis 1+; Platelet Estimate Normal
[2020-03-21 06:26] LABS: Smudge Cells Few
[2020-03-21] MEDS: PANTOPRAZOLE 40 MG VIAL IV SCH (08:59)
[2020-03-21] MEDS: levETIRAcetam LIQUID 100 MG/ML 30 ML/BOTTLE PO SCH ×2 (08:59→20:28)
[2020-03-21] MEDS: CARBIDOPA/LEVODOPA 25-100 MG TABLET PO SCH ×3 (08:59→20:28)
[2020-03-21] MEDS: DIGOXIN 0.5 MG/2 ML AMP IV SCH (08:59)
[2020-03-21] MEDS: amLODIPine 10 MG TABLET PER TUBE SCH (08:59)
[2020-03-21] MEDS ORDERED: LEVOFLOXACIN INJ 750 MG in PREMIX 1 EACH IV ONE (17:00)
[2020-03-21] MEDS: INSULIN GLARGINE 100 UNIT/ML SUBCUT SCH (20:28)
[2020-03-22] MEDS: INSULIN REGULAR 100 UNIT/ML SUBCUT SCH ×5 (00:44→23:49)
[2020-03-22 04:30] LABS: ABG Base Excess 15.1 MMOL/L (-2.5-2.5); ABG HCO3 39.5 MMOL/L (20-26); ABG PCO2 49.4 MM HG (35-48); ABG PH 7.521 (7.35-7.45); ABG PO2 127.8 MM HG (80-95); Allen Test Positive; Pt O2 Delivery Device Ventilator
[2020-03-22 04:43] LABS: Basophils # 0.1 10*3/uL (0.0-0.2); Basophils % 0.3 % (0.0-0.8); Eosinophils # 0.2 10*3/uL (0.0-0.87); Eosinophils % 1.1 % (0.00-10.9); Hemoglobin 7.7 GM/DL (12.0-16.0); Immature Granulocytes % 3.7 %; Immature Granulocytes Absolute 0.67 #; Lymphocytes # 1.2 10*3/uL (1.4-4.0); Lymphocytes % 6.8 % (21.3-54.2); Mean Corpuscular HGB Conc 29.6 GM/DL (32-36); Mean Corpuscular Volume 102.8 FL (87-102); Mean Platelet Volume 11.7 FL (9.6-12.0); Monocytes % 15.4 % (1.7-12.7); NRBC # 0.16 10*3/uL; Neutrophils % 72.7 % (38.7-73.9); Platelet Count 280 T/CUMM (130-400); Red Blood Count 2.53 MC/CUMM (3.8-5.5); Red Cell Distribution Width 14.7 % (9.3-17.3); White Blood Count 18.2 T/CUMM (4-12)
[2020-03-22 05:00] LABS: Calcium 8.4 MG/DL (8.5-10.1)
[2020-03-22] MEDS: HEPARIN DRIP 25,000 UNITS/500 ML PREMIX IV SCH ×2 (06:18→17:35)
[2020-03-22 06:53] LABS: Band Neutrophils 1 % (0-10); Eosinophils 2 % (0-10); Lymphocytes 5 % (20-55); Macrocytosis Slight; Platelet Estimate Normal; Segmented Neutrophils 70 % (50-85); Total Cells Counted 100
[2020-03-22 06:54] LABS: Anisocytosis Slight; Polychromasia Few; Target Cells Slight
[2020-03-22] MEDS ORDERED: POTASSIUM CHLORIDE 20 MEQ/15 ML UDCUP PER TUBE ONE (08:10)
[2020-03-22] MEDS: CARBIDOPA/LEVODOPA 25-100 MG TABLET PO SCH ×3 (08:10→20:10)
[2020-03-22] MEDS: levETIRAcetam LIQUID 100 MG/ML 30 ML/BOTTLE PO SCH ×2 (08:10→20:10)
[2020-03-22] MEDS: DIGOXIN 0.5 MG/2 ML AMP IV SCH (08:10)
[2020-03-22] MEDS: amLODIPine 10 MG TABLET PER TUBE SCH (08:11)
[2020-03-22] MEDS: PANTOPRAZOLE 40 MG VIAL IV SCH (08:12)
[2020-03-22] MEDS: DEXTROSE 5% 1,000 ML IV SCH ×2 (10:28→20:02)
[2020-03-22] MEDS ORDERED: VANCOMYCIN INJ 1,500 MG in SODIUM CHLORIDE 0.9% 500 ML IV ONE (11:00)
[2020-03-22] MEDS: INSULIN GLARGINE 100 UNIT/ML SUBCUT SCH (20:10)
[2020-03-23 04:46] LABS: ABG Base Excess 13.4 MMOL/L (-2.5-2.5); ABG HCO3 37.2 MMOL/L (20-26); ABG Oxygen Saturation 99.2 % (95-100); ABG PCO2 47.1 MM HG (35-48); ABG PH 7.516 (7.35-7.45); ABG TCO2 34.9 MMOL/L (23-27); Allen Test Positive; Pt O2 Delivery Device Ventilator
[2020-03-23 04:50] LABS: Basophils % 0.2 % (0.0-0.8); Eosinophils # 0.2 10*3/uL (0.0-0.87); Eosinophils % 1.4 % (0.00-10.9); Hematocrit 27.1 VOL% (35.7-47.0); Hemoglobin 7.9 GM/DL (12.0-16.0); Immature Granulocytes % 2.2 %; Immature Granulocytes Absolute 0.38 #; Lymphocytes % 5.8 % (21.3-54.2); Mean Corpuscular HGB Conc 29.2 GM/DL (32-36); Mean Corpuscular Volume 103.8 FL (87-102); Mean Platelet Volume 12.4 FL (9.6-12.0); Monocytes % 12.7 % (1.7-12.7); NRBC # 0.16 10*3/uL; Neutrophils % 77.7 % (38.7-73.9); Platelet Count 256 T/CUMM (130-400); Red Blood Count 2.61 MC/CUMM (3.8-5.5); Red Cell Distribution Width 14.9 % (9.3-17.3); White Blood Count 17.4 T/CUMM (4-12)
[2020-03-23 04:53] LABS: Calcium 8.1 MG/DL (8.5-10.1)
[2020-03-23] MEDS: INSULIN REGULAR 100 UNIT/ML SUBCUT SCH ×3 (05:40→18:11)
[2020-03-23] MEDS: HEPARIN DRIP 25,000 UNITS/500 ML PREMIX IV SCH ×2 (06:28→22:35)
[2020-03-23] MEDS: DEXTROSE 5% 1,000 ML IV SCH ×2 (06:31→15:14)
[2020-03-23] MEDS: DIGOXIN 0.5 MG/2 ML AMP IV SCH ×2 (08:11→17:40)
[2020-03-23] MEDS: PANTOPRAZOLE 40 MG VIAL IV SCH (08:12)
[2020-03-23] MEDS: amLODIPine 10 MG TABLET PER TUBE SCH (08:12)
[2020-03-23] MEDS: CARBIDOPA/LEVODOPA 25-100 MG TABLET PO SCH ×3 (08:12→21:00)
[2020-03-23] MEDS ORDERED: LEVOFLOXACIN INJ 500 MG in PREMIX 1 EACH IV SCH (09:00)
[2020-03-23] MEDS ORDERED: MAGNESIUM SULF RIDER 2 GM in PREMIX 1 EACH IV ONE (10:09)
[2020-03-23] MEDS: POTASSIUM CHLORIDE 20 MEQ/15 ML UDCUP PER TUBE SCH ×2 (10:51→14:01)
[2020-03-23] MEDS: hydrALAZINE 20 MG/1 ML VIAL IV PRN (11:15)
[2020-03-23] MEDS: levETIRAcetam LIQUID 100 MG/ML 30 ML/BOTTLE PO SCH ×2 (11:36→21:00)
[2020-03-23] MEDS: VANCOMYCIN INJ 1,500 MG in SODIUM CHLORIDE 0.9% 500 ML IV SCH (11:37)
[2020-03-23] MEDS: INSULIN GLARGINE 100 UNIT/ML SUBCUT SCH (21:00)
[2020-03-24] MEDS: INSULIN REGULAR 100 UNIT/ML SUBCUT SCH ×4 (01:02→17:24)
[2020-03-24] MEDS: DEXTROSE 5% 1,000 ML IV SCH ×2 (01:02→10:52)
[2020-03-24 04:20] LABS: ABG Base Excess 12.4 MMOL/L (-2.5-2.5); ABG HCO3 36.1 MMOL/L (20-26); ABG Oxygen Saturation 99.5 % (95-100); ABG PCO2 41.2 MM HG (35-48); ABG PH 7.549 (7.35-7.45); ABG TCO2 34.1 MMOL/L (23-27); Allen Test Positive; Pt O2 Delivery Device Ventilator
[2020-03-24 05:08] LABS: Basophils % 0.1 % (0.0-0.8); Eosinophils # 0.3 10*3/uL (0.0-0.87); Eosinophils % 1.4 % (0.00-10.9); Hematocrit 22.6 VOL% (35.7-47.0); Hemoglobin 6.6 GM/DL (12.0-16.0); Immature Granulocytes % 2.5 %; Immature Granulocytes Absolute 0.51 #; Lymphocytes # 1.1 10*3/uL (1.4-4.0); Lymphocytes % 5.6 % (21.3-54.2); Mean Corpuscular HGB Conc 29.2 GM/DL (32-36); Mean Corpuscular Volume 103.7 FL (87-102); Monocytes % 9.9 % (1.7-12.7); NRBC # 0.22 10*3/uL; Neutrophils % 80.5 % (38.7-73.9); Platelet Count 185 T/CUMM (130-400); Red Blood Count 2.18 MC/CUMM (3.8-5.5); Red Cell Distribution Width 14.7 % (9.3-17.3); White Blood Count 20.1 T/CUMM (4-12)
[2020-03-24 05:25] LABS: Alanine Aminotransferase 13 U/L (13-56); Albumin 1.3 G/DL (3.4-5.0); Alkaline Phosphatase 87 U/L (45-117); Aspartate Amino Transferase 43 U/L (0-37); Bilirubin,Total < 0.39 MG/DL (0.2-1.0); Blood Urea Nitrogen 49 MG/DL (7-18); Calcium 7.2 MG/DL (8.5-10.1); Estimated Glom Filtration Rate 63 ML/MIN; Glucose 193 MG/DL (74-106); Osmolality,Calculated 307.6 MOS/KG (273-304)
[2020-03-24 05:30] LABS: Atypical Lymphocytes Few; Band Neutrophils 2 % (0-10); Eosinophils 2 % (0-10); Hypochromasia 1+; Lymphocytes 2 % (20-55); Macrocytosis Slight; Metamyelocytes 1 %; Myelocytes 2 %; Polychromasia Slight; Segmented Neutrophils 83 % (50-85); Total Cells Counted 100
[2020-03-24] MEDS ORDERED: POTASSIUM CHLORIDE 20 MEQ/15 ML UDCUP PER TUBE ONE (06:30)
[2020-03-24] MEDS: amLODIPine 10 MG TABLET PER TUBE SCH (08:29)
[2020-03-24] MEDS: DIGOXIN 0.5 MG/2 ML AMP IV SCH (08:29)
[2020-03-24] MEDS: PANTOPRAZOLE 40 MG VIAL IV SCH (08:30)
[2020-03-24] MEDS: CARBIDOPA/LEVODOPA 25-100 MG TABLET PO SCH ×3 (08:31→20:13)
[2020-03-24] MEDS: levETIRAcetam LIQUID 100 MG/ML 30 ML/BOTTLE PO SCH ×2 (08:34→20:13)
[2020-03-24] MEDS: LEVOFLOXACIN INJ 750 MG in PREMIX 1 EACH IV SCH (09:10)
[2020-03-24] MEDS ORDERED: SODIUM CHLORIDE 0.9% 1,000 ML IV PRN (09:11)
[2020-03-24] MEDS: VANCOMYCIN INJ 1,500 MG in SODIUM CHLORIDE 0.9% 500 ML IV SCH (11:03)
[2020-03-24] MEDS: HEPARIN DRIP 25,000 UNITS/500 ML PREMIX IV SCH (14:06)
[2020-03-24] MEDS: MORPHINE 4 MG/1 ML VIAL IV PRN ×2 (14:23→17:27)
[2020-03-24] MEDS: ACETAMINOPHEN 325 MG TABLET PO PRN (16:51)
[2020-03-24] MEDS ORDERED: MAGNESIUM SULF RIDER 2 GM in PREMIX 1 EACH IV ONE (17:10)
[2020-03-24] MEDS: INSULIN GLARGINE 100 UNIT/ML SUBCUT SCH (20:13)
[2020-03-25] MEDS: INSULIN REGULAR 100 UNIT/ML SUBCUT SCH ×5 (01:02→23:21)
[2020-03-25 04:03] LABS: ABG Base Excess 9.6 MMOL/L (-2.5-2.5); ABG HCO3 33.8 MMOL/L (20-26); ABG Oxygen Saturation 98.4 % (95-100); ABG PCO2 44.5 MM HG (35-48); ABG PH 7.499 (7.35-7.45); ABG PO2 150.8 MM HG (80-95); ABG TCO2 35.2 MMOL/L (23-27); Allen Test Positive; Pt O2 Delivery Device Ventilator
[2020-03-25 04:34] LABS: Basophils # 0.1 10*3/uL (0.0-0.2); Basophils % 0.2 % (0.0-0.8); Eosinophils # 0.4 10*3/uL (0.0-0.87); Eosinophils % 1.9 % (0.00-10.9); Hematocrit 30.3 VOL% (35.7-47.0); Hemoglobin 9.3 GM/DL (12.0-16.0); Immature Granulocytes % 3.1 %; Immature Granulocytes Absolute 0.68 #; Lymphocytes # 1.1 10*3/uL (1.4-4.0); Lymphocytes % 5.1 % (21.3-54.2); Mean Corpuscular HGB Conc 30.7 GM/DL (32-36); Mean Corpuscular Volume 99.7 FL (87-102); Mean Platelet Volume 11.8 FL (9.6-12.0); NRBC # 0.12 10*3/uL; Neutrophils % 81.7 % (38.7-73.9); Platelet Count 188 T/CUMM (130-400); Red Blood Count 3.04 MC/CUMM (3.8-5.5); Red Cell Distribution Width 16.1 % (9.3-17.3); White Blood Count 21.8 T/CUMM (4-12)
[2020-03-25 04:44] LABS: Albumin 1.4 G/DL (3.4-5.0); Bilirubin,Total 0.8 MG/DL (0.2-1.0); Osmolality,Calculated 309.1 MOS/KG (273-304); Total Protein 5.2 G/DL (6.4-8.3)
[2020-03-25 05:05] LABS: Band Neutrophils 2 % (0-10); Eosinophils 1 % (0-10); Hypochromasia 1+; Lymphocytes 3 % (20-55); Myelocytes 1 %; Segmented Neutrophils 86 % (50-85); Total Cells Counted 100
[2020-03-25 05:06] LABS: Macrocytosis 1+; Platelet Estimate Adequate; Polychromasia Slight
[2020-03-25] MEDS: amLODIPine 10 MG TABLET PER TUBE SCH (08:25)
[2020-03-25] MEDS: DIGOXIN 0.5 MG/2 ML AMP IV SCH (08:25)
[2020-03-25] MEDS: levETIRAcetam LIQUID 100 MG/ML 30 ML/BOTTLE PO SCH ×2 (08:25→21:59)
[2020-03-25] MEDS: CARBIDOPA/LEVODOPA 25-100 MG TABLET PO SCH ×3 (08:25→21:59)
[2020-03-25] MEDS: LEVOFLOXACIN INJ 750 MG in PREMIX 1 EACH IV SCH (09:13)
[2020-03-25] MEDS: PANTOPRAZOLE 40 MG VIAL IV SCH (09:14)
[2020-03-25] MEDS: HEPARIN DRIP 25,000 UNITS/500 ML PREMIX IV SCH ×2 (09:14→23:16)
[2020-03-25] MEDS: MORPHINE 4 MG/1 ML VIAL IV PRN (09:27)
[2020-03-25] MEDS ORDERED: MAGNESIUM SULF RIDER 2 GM in PREMIX 1 EACH IV ONE (09:53)
[2020-03-25] MEDS: POTASSIUM CHLORIDE 20 MEQ/15 ML UDCUP PER TUBE SCH ×2 (10:30→14:30)
[2020-03-25] MEDS: VANCOMYCIN INJ 1,500 MG in SODIUM CHLORIDE 0.9% 500 ML IV SCH (12:42)
[2020-03-25] MEDS: INSULIN GLARGINE 100 UNIT/ML SUBCUT SCH (21:59)
[2020-03-26 04:15] LABS: ABG Base Excess 9.9 MMOL/L (-2.5-2.5); ABG HCO3 33.3 MMOL/L (20-26); ABG Oxygen Saturation 98.4 % (95-100); ABG PCO2 40.1 MM HG (35-48); ABG PH 7.537 (7.35-7.45); ABG PO2 150.8 MM HG (80-95); ABG TCO2 34.5 MMOL/L (23-27); Allen Test Positive; Pt O2 Delivery Device Ventilator
[2020-03-26 05:08] LABS: Basophils % 0.1 % (0.0-0.8); Eosinophils # 0.4 10*3/uL (0.0-0.87); Eosinophils % 1.8 % (0.00-10.9); Hemoglobin 7.6 GM/DL (12.0-16.0); Immature Granulocytes % 1.9 %; Immature Granulocytes Absolute 0.39 #; Lymphocytes # 0.9 10*3/uL (1.4-4.0); Lymphocytes % 4.2 % (21.3-54.2); Mean Corpuscular HGB Conc 30.4 GM/DL (32-36); Mean Corpuscular Volume 98.4 FL (87-102); Mean Platelet Volume 11.4 FL (9.6-12.0); Monocytes % 7.1 % (1.7-12.7); NRBC # 0.05 10*3/uL; Neutrophils % 84.9 % (38.7-73.9); Platelet Count 137 T/CUMM (130-400); Red Blood Count 2.54 MC/CUMM (3.8-5.5); Red Cell Distribution Width 16.2 % (9.3-17.3); White Blood Count 20.6 T/CUMM (4-12)
[2020-03-26 05:40] LABS: Band Neutrophils 2 % (0-10); Eosinophils 3 % (0-10); Hypochromasia 1+; Lymphocytes 11 % (20-55); Microcytosis Slight; Platelet Estimate Normal; Segmented Neutrophils 77 % (50-85); Total Cells Counted 100
[2020-03-26 05:52] LABS: Albumin 1.2 G/DL (3.4-5.0); Bilirubin,Total 0.8 MG/DL (0.2-1.0); Calcium 7.1 MG/DL (8.5-10.1); Total Protein 4.6 G/DL (6.4-8.3)
[2020-03-26] MEDS: INSULIN REGULAR 100 UNIT/ML SUBCUT SCH ×3 (06:32→18:02)
[2020-03-26] MEDS: HEPARIN DRIP 25,000 UNITS/500 ML PREMIX IV SCH ×2 (06:32→19:09)
[2020-03-26] MEDS: LEVOFLOXACIN INJ 750 MG in PREMIX 1 EACH IV SCH (08:05)
[2020-03-26] MEDS: DIGOXIN 0.5 MG/2 ML AMP IV SCH (08:05)
[2020-03-26] MEDS: levETIRAcetam LIQUID 100 MG/ML 30 ML/BOTTLE PO SCH ×2 (08:05→20:36)
[2020-03-26] MEDS: CARBIDOPA/LEVODOPA 25-100 MG TABLET PO SCH ×3 (08:06→20:36)
[2020-03-26] MEDS: PANTOPRAZOLE 40 MG VIAL IV SCH (08:06)
[2020-03-26] MEDS: amLODIPine 10 MG TABLET PER TUBE SCH (08:06)
[2020-03-26] MEDS: MORPHINE 4 MG/1 ML VIAL IV PRN ×2 (13:40→17:00)
[2020-03-26] MEDS: VANCOMYCIN INJ 1,500 MG in SODIUM CHLORIDE 0.9% 500 ML IV SCH (13:40)
[2020-03-26] MEDS: DEXMEDETOMIDINE 400 MCG in SODIUM CHLORIDE 0.9% 96 ML IV PRN (14:14)
[2020-03-26] MEDS: DIGOXIN 0.25 MG TABLET PER TUBE SCH (15:05)
[2020-03-26] MEDS: INSULIN GLARGINE 100 UNIT/ML SUBCUT SCH (20:36)
[2020-03-26] MEDS: DEXTROSE 10% 250 ML BAG IV PRN (23:23)
[2020-03-27] MEDS: INSULIN REGULAR 100 UNIT/ML SUBCUT SCH ×4 (00:18→17:45)
[2020-03-27] MEDS: DEXMEDETOMIDINE 400 MCG in SODIUM CHLORIDE 0.9% 96 ML IV PRN (04:13)
[2020-03-27 04:32] LABS: Basophils % 0.2 % (0.0-0.8); Eosinophils # 0.3 10*3/uL (0.0-0.87); Eosinophils % 1.4 % (0.00-10.9); Hematocrit 22.4 VOL% (35.7-47.0); Immature Granulocytes % 1.5 %; Immature Granulocytes Absolute 0.28 #; Lymphocytes # 0.7 10*3/uL (1.4-4.0); Lymphocytes % 3.8 % (21.3-54.2); Mean Corpuscular HGB Conc 29.9 GM/DL (32-36); Mean Corpuscular Volume 102.8 FL (87-102); Neutrophils % 86.1 % (38.7-73.9); Red Blood Count 2.18 MC/CUMM (3.8-5.5); Red Cell Distribution Width 15.9 % (9.3-17.3); White Blood Count 19.1 T/CUMM (4-12)
[2020-03-27 04:33] LABS: Hemoglobin 6.7 GM/DL (12.0-16.0); Platelet Count 109 T/CUMM (130-400)
[2020-03-27 04:40] LABS: Allen Test Positive; Pt O2 Delivery Device Ventilator
[2020-03-27 04:42] LABS: ABG Base Excess 8.7 MMOL/L (-2.5-2.5); ABG HCO3 32.5 MMOL/L (20-26); ABG Oxygen Saturation 99.6 % (95-100); ABG PCO2 45.6 MM HG (35-48); ABG PH 7.471 (7.35-7.45); ABG TCO2 31.4 MMOL/L (23-27)
[2020-03-27 04:56] LABS: Albumin 1.1 G/DL (3.4-5.0); Bilirubin,Total 0.4 MG/DL (0.2-1.0); Calcium 7.1 MG/DL (8.5-10.1); Osmolality,Calculated 296.7 MOS/KG (273-304); Total Protein 4.6 G/DL (6.4-8.3)
[2020-03-27 04:58] LABS: Band Neutrophils 1 % (0-10); Eosinophils 1 % (0-10); Lymphocytes 3 % (20-55); Platelet Estimate Decreased; Segmented Neutrophils 89 % (50-85); Total Cells Counted 100
[2020-03-27 04:59] LABS: Hypochromasia 1+; Microcytosis Slight
[2020-03-27] MEDS: HEPARIN DRIP 25,000 UNITS/500 ML PREMIX IV SCH ×2 (06:24→15:41)
[2020-03-27] MEDS: PANTOPRAZOLE 40 MG VIAL IV SCH (08:34)
[2020-03-27] MEDS: levETIRAcetam LIQUID 100 MG/ML 30 ML/BOTTLE PO SCH ×2 (08:35→20:19)
[2020-03-27] MEDS: amLODIPine 10 MG TABLET PER TUBE SCH (08:35)
[2020-03-27] MEDS: CARBIDOPA/LEVODOPA 25-100 MG TABLET PO SCH ×3 (08:35→20:20)
[2020-03-27] MEDS: LEVOFLOXACIN INJ 750 MG in PREMIX 1 EACH IV SCH (08:47)
[2020-03-27] MEDS ORDERED: SODIUM CHLORIDE 0.9% 1,000 ML IV PRN (09:27)
[2020-03-27] MEDS: POTASSIUM CHLORIDE 20 MEQ/15 ML UDCUP PER TUBE SCH ×3 (09:43→17:04)
[2020-03-27] MEDS: DIGOXIN 0.25 MG TABLET PER TUBE SCH (13:58)
[2020-03-27] MEDS: VANCOMYCIN INJ 1,500 MG in SODIUM CHLORIDE 0.9% 500 ML IV SCH (20:19)
[2020-03-27] MEDS: INSULIN GLARGINE 100 UNIT/ML SUBCUT SCH (20:20)
[2020-03-27 20:23] LABS: Hematocrit 30.1 VOL% (35.7-47.0); Hemoglobin 9.5 GM/DL (12.0-16.0)
[2020-03-28] MEDS: INSULIN REGULAR 100 UNIT/ML SUBCUT SCH ×4 (00:35→17:17)
[2020-03-28] MEDS ORDERED: ROCURONIUM 100 MG/10 ML VIAL IV ONE ×2 (02:03→02:32)
[2020-03-28] MEDS ORDERED: ETOMIDATE 20 MG/10 ML VIAL IV ONE ×2 (02:03→02:32)
[2020-03-28 04:04] LABS: ABG Base Excess 5.9 MMOL/L (-2.5-2.5); ABG HCO3 31.2 MMOL/L (20-26); ABG Oxygen Saturation 98.8 % (95-100); ABG PCO2 49.8 MM HG (35-48); ABG PH 7.415 (7.35-7.45); ABG TCO2 32.7 MMOL/L (23-27)
[2020-03-28 05:27] LABS: Basophils % 0.2 % (0.0-0.8); Eosinophils # 0.3 10*3/uL (0.0-0.87); Hematocrit 28.3 VOL% (35.7-47.0); Hemoglobin 8.8 GM/DL (12.0-16.0); Immature Granulocytes Absolute 0.16 #; Lymphocytes # 0.6 10*3/uL (1.4-4.0); Lymphocytes % 3.7 % (21.3-54.2); Mean Corpuscular HGB Conc 31.1 GM/DL (32-36); Mean Corpuscular Volume 96.6 FL (87-102); Mean Platelet Volume 11.9 FL (9.6-12.0); Monocytes % 7.6 % (1.7-12.7); Neutrophils % 85.5 % (38.7-73.9); Platelet Count 120 T/CUMM (130-400); White Blood Count 16.1 T/CUMM (4-12)
[2020-03-28 05:38] LABS: Red Blood Count 2.93 MC/CUMM (3.8-5.5)
[2020-03-28] MEDS: HEPARIN DRIP 25,000 UNITS/500 ML PREMIX IV SCH ×2 (05:40→11:19)
[2020-03-28 05:44] LABS: Calcium 7.5 MG/DL (8.5-10.1); Osmolality,Calculated 305.3 MOS/KG (273-304)
[2020-03-28 06:00] LABS: Band Neutrophils 1 % (0-10); Eosinophils 3 % (0-10); Lymphocytes 4 % (20-55); Segmented Neutrophils 84 % (50-85); Smudge Cells Few; Total Cells Counted 100
[2020-03-28 06:01] LABS: Anisocytosis 1+; Platelet Estimate Adequate
[2020-03-28 06:02] LABS: Hypochromasia Slight
[2020-03-28] MEDS: amLODIPine 10 MG TABLET PER TUBE SCH (08:35)
[2020-03-28] MEDS: PANTOPRAZOLE 40 MG VIAL IV SCH (08:37)
[2020-03-28] MEDS: CARBIDOPA/LEVODOPA 25-100 MG TABLET PO SCH ×3 (08:37→21:17)
[2020-03-28] MEDS: LEVOFLOXACIN INJ 750 MG in PREMIX 1 EACH IV SCH (08:39)
[2020-03-28] MEDS: levETIRAcetam LIQUID 100 MG/ML 30 ML/BOTTLE PO SCH ×2 (08:39→21:17)
[2020-03-28] MEDS: DEXMEDETOMIDINE 400 MCG in SODIUM CHLORIDE 0.9% 96 ML IV PRN ×2 (08:46→21:18)
[2020-03-28] MEDS: MORPHINE 4 MG/1 ML VIAL IV PRN (12:08)
[2020-03-28] MEDS ORDERED: MAGNESIUM SULF RIDER 2 GM in PREMIX 1 EACH IV ONE (16:01)
[2020-03-28] MEDS: VANCOMYCIN INJ 1,500 MG in SODIUM CHLORIDE 0.9% 500 ML IV SCH (21:17)
[2020-03-28] MEDS: INSULIN GLARGINE 100 UNIT/ML SUBCUT SCH (21:17)
[2020-03-29] MEDS: INSULIN REGULAR 100 UNIT/ML SUBCUT SCH ×4 (00:55→18:07)
[2020-03-29 04:25] LABS: Allen Test Positive; Pt O2 Delivery Device Ventilator
[2020-03-29 04:26] LABS: ABG Base Excess 3.7 MMOL/L (-2.5-2.5); ABG HCO3 27.5 MMOL/L (20-26); ABG Oxygen Saturation 73.7 % (95-100); ABG PCO2 60.4 MM HG (35-48); ABG PH 7.317 (7.35-7.45); ABG TCO2 29.3 MMOL/L (23-27)
[2020-03-29 04:32] LABS: Basophils % 0.3 % (0.0-0.8); Eosinophils # 0.6 10*3/uL (0.0-0.87); Eosinophils % 3.7 % (0.00-10.9); Hematocrit 26.4 VOL% (35.7-47.0); Hemoglobin 8.2 GM/DL (12.0-16.0); Immature Granulocytes Absolute 0.16 #; Lymphocytes # 0.7 10*3/uL (1.4-4.0); Lymphocytes % 4.8 % (21.3-54.2); Mean Corpuscular HGB Conc 31.1 GM/DL (32-36); Mean Corpuscular Volume 98.1 FL (87-102); Mean Platelet Volume 12.1 FL (9.6-12.0); Monocytes % 7.1 % (1.7-12.7); Neutrophils % 83.1 % (38.7-73.9); Platelet Count 118 T/CUMM (130-400); Red Blood Count 2.69 MC/CUMM (3.8-5.5); Red Cell Distribution Width 16.1 % (9.3-17.3); White Blood Count 15.5 T/CUMM (4-12)
[2020-03-29 04:42] LABS: Calcium 7.7 MG/DL (8.5-10.1); Osmolality,Calculated 301.7 MOS/KG (273-304)
[2020-03-29] MEDS: DEXMEDETOMIDINE 400 MCG in SODIUM CHLORIDE 0.9% 96 ML IV PRN ×3 (05:20→18:07)
[2020-03-29] MEDS: HEPARIN DRIP 25,000 UNITS/500 ML PREMIX IV SCH (05:21)
[2020-03-29] MEDS: MORPHINE 4 MG/1 ML VIAL IV PRN ×4 (07:37→20:40)
[2020-03-29 08:00] LABS: ABG Base Excess 4.7 MMOL/L (-2.5-2.5); ABG HCO3 28.7 MMOL/L (20-26); ABG Oxygen Saturation 97.1 % (95-100); ABG PCO2 53.2 MM HG (35-48); ABG PH 7.371 (7.35-7.45); ABG PO2 85.6 MM HG (80-95); ABG TCO2 28.9 MMOL/L (23-27); Allen Test Positive; Pt O2 Delivery Device Ventilator
[2020-03-29] MEDS: LEVOFLOXACIN INJ 750 MG in PREMIX 1 EACH IV SCH (08:12)
[2020-03-29 08:36] LABS: Eosinophils 1 % (0-10); Lymphocytes 4 % (20-55); Metamyelocytes 2 %; Platelet Estimate Decreased; Segmented Neutrophils 88 % (50-85); Total Cells Counted 100
[2020-03-29] MEDS: ACETAMINOPHEN 325 MG TABLET PO PRN (08:52)
[2020-03-29] MEDS: levETIRAcetam LIQUID 100 MG/ML 30 ML/BOTTLE PO SCH ×2 (08:54→20:47)
[2020-03-29] MEDS: PANTOPRAZOLE 40 MG VIAL IV SCH (08:55)
[2020-03-29] MEDS: CARBIDOPA/LEVODOPA 25-100 MG TABLET PO SCH ×3 (08:55→20:48)
[2020-03-29] MEDS: amLODIPine 10 MG TABLET PER TUBE SCH (08:55)
[2020-03-29] MEDS ORDERED: SODIUM CHLORIDE 0.9% 1,000 ML IV ONE (09:41)
[2020-03-29] MEDS: PHENYLEPHRINE DRIP 40 MG/250 ML PREMIX IV PRN (09:51)
[2020-03-29] MEDS: fentaNYL 50 MCG/HR PATCH TRANSDERM SCH (10:10)
[2020-03-29 13:43] LABS: Apearance,Urine CLOUDY (Clear); Bacteria,Urine Many /HPF (Few); Bilirubin,Urine Negative (Negative); Blood, Urine Moderate mg/dL (Negative); Glucose,Urine (UA) Negative (Negative); Ketones,Urine Negative (Negative); Mucus,Urine Occasional /LPF (Occasional); Nitrite,Urine Negative (Negative); Protein,Urine Negative; RBC,Urine 90 /HPF (0-4); Squamous Epithelial Cell,Urine Moderate /HPF (0-10); Urine Color Yellow (Yellow); Urine Specific Gravity 1.014 (1.001-1.035); Urine Urobilinogen < 2.0 EU/DL (0.2-1.0); WBC,Urine 21 /HPF (0-6)
[2020-03-29] MEDS: INSULIN GLARGINE 100 UNIT/ML SUBCUT SCH (20:48)
[2020-03-29] MEDS: VANCOMYCIN INJ 1,500 MG in SODIUM CHLORIDE 0.9% 500 ML IV SCH (21:23)
[2020-03-30] MEDS: INSULIN REGULAR 100 UNIT/ML SUBCUT SCH ×4 (00:37→17:50)
[2020-03-30] MEDS: HEPARIN DRIP 25,000 UNITS/500 ML PREMIX IV SCH ×3 (00:39→18:12)
[2020-03-30] MEDS: DEXMEDETOMIDINE 400 MCG in SODIUM CHLORIDE 0.9% 96 ML IV PRN ×3 (01:07→23:13)
[2020-03-30 03:49] LABS: ABG Base Excess 3.7 MMOL/L (-2.5-2.5); ABG HCO3 27.7 MMOL/L (20-26); ABG Oxygen Saturation 93.6 % (95-100); ABG PCO2 52.2 MM HG (35-48); ABG PH 7.364 (7.35-7.45); ABG PO2 69.5 MM HG (80-95); ABG TCO2 27.8 MMOL/L (23-27); Allen Test Positive; Pt O2 Delivery Device Ventilator
[2020-03-30 04:54] LABS: Basophils # 0.1 10*3/uL (0.0-0.2); Basophils % 0.3 % (0.0-0.8); Eosinophils # 0.5 10*3/uL (0.0-0.87); Eosinophils % 2.9 % (0.00-10.9); Hematocrit 26.4 VOL% (35.7-47.0); Immature Granulocytes % 1.1 %; Immature Granulocytes Absolute 0.18 #; Lymphocytes # 0.9 10*3/uL (1.4-4.0); Lymphocytes % 5.3 % (21.3-54.2); Mean Corpuscular HGB Conc 30.3 GM/DL (32-36); Mean Corpuscular Volume 97.8 FL (87-102); Mean Platelet Volume 11.8 FL (9.6-12.0); Monocytes % 7.1 % (1.7-12.7); Neutrophils % 83.3 % (38.7-73.9); Platelet Count 146 T/CUMM (130-400); Red Cell Distribution Width 15.9 % (9.3-17.3)
[2020-03-30] MEDS: ACETAMINOPHEN 325 MG TABLET PO PRN (05:17)
[2020-03-30 05:19] LABS: Calcium 7.8 MG/DL (8.5-10.1); Osmolality,Calculated 305.8 MOS/KG (273-304)
[2020-03-30] MEDS: MORPHINE 4 MG/1 ML VIAL IV PRN ×3 (05:49→21:42)
[2020-03-30 06:47] LABS: INR 1.1; PT Patient Result 11.4 SECS (9.8-11.9); Partial Thromboplastin Time 42.8 SECS (23.9-33.8)
[2020-03-30] MEDS: LEVOFLOXACIN INJ 750 MG in PREMIX 1 EACH IV SCH (09:46)
[2020-03-30] MEDS: PHENYLEPHRINE DRIP 40 MG/250 ML PREMIX IV PRN (10:05)
[2020-03-30] MEDS: VANCOMYCIN INJ 1,500 MG in SODIUM CHLORIDE 0.9% 500 ML IV SCH (10:31)
[2020-03-30] MEDS: CARBIDOPA/LEVODOPA 25-100 MG TABLET PO SCH (10:31)
[2020-03-30] MEDS: PANTOPRAZOLE 40 MG VIAL IV SCH (10:31)
[2020-03-30] MEDS: amLODIPine 10 MG TABLET PER TUBE SCH (10:31)
[2020-03-30] MEDS: levETIRAcetam LIQUID 100 MG/ML 30 ML/BOTTLE PO SCH ×2 (10:31→21:13)
[2020-03-30] MEDS: MICAFUNGIN 100 MG in SODIUM CHLORIDE 0.9% 100 ML IV SCH (17:50)
[2020-03-30] MEDS ORDERED: INSULIN GLARGINE 100 UNIT/ML SUBCUT SCH (21:00)
[2020-03-31] MEDS: ACETAMINOPHEN 325 MG TABLET PO PRN ×4 (00:32→20:58)
[2020-03-31] MEDS: INSULIN REGULAR 100 UNIT/ML SUBCUT SCH ×4 (00:32→17:18)
[2020-03-31] MEDS: MORPHINE 4 MG/1 ML VIAL IV PRN ×2 (00:32→04:00)
[2020-03-31 04:02] LABS: Basophils % 0.2 % (0.0-0.8); Eosinophils # 0.1 10*3/uL (0.0-0.87); Eosinophils % 1.3 % (0.00-10.9); Hematocrit 22.7 VOL% (35.7-47.0); Immature Granulocytes % 0.8 %; Immature Granulocytes Absolute 0.07 #; Lymphocytes # 0.5 10*3/uL (1.4-4.0); Lymphocytes % 5.3 % (21.3-54.2); Mean Corpuscular HGB Conc 30.8 GM/DL (32-36); Monocytes % 6.7 % (1.7-12.7); Neutrophils % 85.7 % (38.7-73.9); Platelet Count 118 T/CUMM (130-400); Red Blood Count 2.34 MC/CUMM (3.8-5.5); Red Cell Distribution Width 15.9 % (9.3-17.3); White Blood Count 8.6 T/CUMM (4-12)
[2020-03-31 04:27] LABS: Band Neutrophils 9 % (0-10); Eosinophils 2 % (0-10); Lymphocytes 3 % (20-55); Nucleated Red Blood Cells 1 (0-5); Segmented Neutrophils 73 % (50-85); Total Cells Counted 100
[2020-03-31 04:28] LABS: Calcium 7.8 MG/DL (8.5-10.1); Hypochromasia Slight; Macrocytosis Slight
[2020-03-31 04:29] LABS: Platelet Estimate Adequate; Polychromasia Slight
[2020-03-31 04:40] LABS: Allen Test Positive; Pt O2 Delivery Device Ventilator
[2020-03-31 04:41] LABS: ABG HCO3 28.9 MMOL/L (20-26); ABG Oxygen Saturation 93.2 % (95-100); ABG PCO2 39.9 MM HG (35-48); ABG PO2 61.5 MM HG (80-95); ABG TCO2 27.5 MMOL/L (23-27)
[2020-03-31] MEDS: DEXTROSE 10% 250 ML BAG IV PRN (05:38)
[2020-03-31] MEDS: HEPARIN DRIP 25,000 UNITS/500 ML PREMIX IV SCH ×2 (05:43→11:07)
[2020-03-31] MEDS: DEXMEDETOMIDINE 400 MCG in SODIUM CHLORIDE 0.9% 96 ML IV PRN ×2 (07:26→16:44)
[2020-03-31] MEDS ORDERED: MAGNESIUM SULF RIDER 2 GM in PREMIX 1 EACH IV ONE (07:46)
[2020-03-31] MEDS: PANTOPRAZOLE 40 MG VIAL IV SCH (08:13)
[2020-03-31] MEDS: levETIRAcetam LIQUID 100 MG/ML 30 ML/BOTTLE PO SCH ×2 (08:13→20:57)
[2020-03-31] MEDS: LEVOFLOXACIN INJ 750 MG in PREMIX 1 EACH IV SCH (08:13)
[2020-03-31] MEDS: MICAFUNGIN 100 MG in SODIUM CHLORIDE 0.9% 100 ML IV SCH (17:19)
[2020-03-31] MEDS: INSULIN GLARGINE 100 UNIT/ML SUBCUT SCH (20:57)
[2020-03-31] MEDS: VANCOMYCIN INJ 1,500 MG in SODIUM CHLORIDE 0.9% 500 ML IV SCH (20:58)
[2020-04-01] MEDS: VANCOMYCIN INJ 1,500 MG in SODIUM CHLORIDE 0.9% 500 ML IV SCH (00:11)
[2020-04-01] MEDS: INSULIN REGULAR 100 UNIT/ML SUBCUT SCH ×5 (00:59→23:58)
[2020-04-01] MEDS: ACETAMINOPHEN 325 MG TABLET PO PRN ×2 (01:33→09:35)
[2020-04-01] MEDS: HEPARIN DRIP 25,000 UNITS/500 ML PREMIX IV SCH ×2 (03:24→06:10)
[2020-04-01 04:40] LABS: Basophils % 0.1 % (0.0-0.8); Eosinophils % 0.3 % (0.00-10.9); Hematocrit 21.7 VOL% (35.7-47.0); Hemoglobin 6.8 GM/DL (12.0-16.0); Immature Granulocytes % 0.8 %; Immature Granulocytes Absolute 0.06 #; Lymphocytes # 0.6 10*3/uL (1.4-4.0); Lymphocytes % 8.9 % (21.3-54.2); Mean Corpuscular HGB Conc 31.3 GM/DL (32-36); Mean Corpuscular Volume 95.6 FL (87-102); Mean Platelet Volume 11.7 FL (9.6-12.0); Monocytes % 6.3 % (1.7-12.7); Neutrophils % 83.6 % (38.7-73.9); Platelet Count 121 T/CUMM (130-400); Red Blood Count 2.27 MC/CUMM (3.8-5.5); Red Cell Distribution Width 15.9 % (9.3-17.3); White Blood Count 7.1 T/CUMM (4-12)
[2020-04-01 04:46] LABS: Allen Test Positive; Pt O2 Delivery Device Ventilator
[2020-04-01 04:52] LABS: Calcium 7.9 MG/DL (8.5-10.1); Osmolality,Calculated 307.7 MOS/KG (273-304)
[2020-04-01 04:53] LABS: ABG Base Excess 3.8 MMOL/L (-2.5-2.5); ABG HCO3 27.1 MMOL/L (20-26); ABG Oxygen Saturation 93.9 % (95-100); ABG PCO2 34.6 MM HG (35-48); ABG PH 7.511 (7.35-7.45); ABG PO2 70.7 MM HG (80-95); ABG TCO2 28.1 MMOL/L (23-27)
[2020-04-01 05:03] LABS: Band Neutrophils 8 % (0-10); Hypochromasia 1+; Lymphocytes 3 % (20-55); Platelet Estimate Normal; Segmented Neutrophils 85 % (50-85); Total Cells Counted 100
[2020-04-01 05:04] LABS: Macrocytosis Slight
[2020-04-01] MEDS: DEXMEDETOMIDINE 400 MCG in SODIUM CHLORIDE 0.9% 96 ML IV PRN ×2 (05:19→11:15)
[2020-04-01] MEDS ORDERED: SODIUM CHLORIDE 0.9% 1,000 ML IV PRN (08:18)
[2020-04-01] MEDS: levETIRAcetam LIQUID 100 MG/ML 30 ML/BOTTLE PO SCH ×2 (08:24→20:47)
[2020-04-01] MEDS: fentaNYL 50 MCG/HR PATCH TRANSDERM SCH (08:24)
[2020-04-01] MEDS: PANTOPRAZOLE 40 MG VIAL IV SCH (08:36)
[2020-04-01] MEDS ORDERED: POTASSIUM CHLORIDE 20 MEQ/15 ML UDCUP PER TUBE ONE (08:47)
[2020-04-01] MEDS: DEXTROSE 10% 250 ML BAG IV PRN (11:45)
[2020-04-01] MEDS ORDERED: FUROSEMIDE 40 MG/4 ML VIAL IV ONE (12:13)
[2020-04-01] MEDS: AMIKACIN 1,000 MG in SODIUM CHLORIDE 0.9% 100 ML IV SCH (12:46)
[2020-04-01] MEDS ORDERED: DEXAMETHASONE 4 MG/1 ML VIAL IV SCH (15:30)
[2020-04-01] MEDS: DEXAMETHASONE 4 MG/1 ML VIAL IV SCH (15:38)
[2020-04-01 17:13] LABS: Hematocrit 27.9 VOL% (35.7-47.0)
[2020-04-01] MEDS: MICAFUNGIN 100 MG in SODIUM CHLORIDE 0.9% 100 ML IV SCH (18:06)
[2020-04-02] MEDS: DEXMEDETOMIDINE 400 MCG in SODIUM CHLORIDE 0.9% 96 ML IV PRN (00:27)
[2020-04-02 03:25] LABS: Allen Test Positive; Pt O2 Delivery Device Ventilator
[2020-04-02 03:26] LABS: ABG Base Excess 3.7 MMOL/L (-2.5-2.5); ABG HCO3 27.8 MMOL/L (20-26); ABG Oxygen Saturation 97.7 % (95-100); ABG PCO2 38.2 MM HG (35-48); ABG PH 7.467 (7.35-7.45); ABG PO2 92.9 MM HG (80-95); ABG TCO2 25.1 MMOL/L (23-27)
[2020-04-02 05:28] LABS: Basophils % 0.1 % (0.0-0.8); Hematocrit 30.4 VOL% (35.7-47.0); Hemoglobin 9.6 GM/DL (12.0-16.0); Immature Granulocytes % 1.3 %; Immature Granulocytes Absolute 0.09 #; Lymphocytes # 0.4 10*3/uL (1.4-4.0); Lymphocytes % 5.6 % (21.3-54.2); Mean Corpuscular HGB Conc 31.6 GM/DL (32-36); Mean Corpuscular Volume 93.5 FL (87-102); Mean Platelet Volume 11.8 FL (9.6-12.0); Monocytes % 5.6 % (1.7-12.7); NRBC # 0.02 10*3/uL; Neutrophils % 87.4 % (38.7-73.9); Platelet Count 140 T/CUMM (130-400); Red Blood Count 3.25 MC/CUMM (3.8-5.5); Red Cell Distribution Width 15.7 % (9.3-17.3); White Blood Count 7.2 T/CUMM (4-12)
[2020-04-02 05:41] LABS: Calcium 7.8 MG/DL (8.5-10.1)
[2020-04-02 06:15] LABS: Band Neutrophils 2 % (0-10); Hypochromasia 1+; Lymphocytes 3 % (20-55); Microcytosis 1+; Segmented Neutrophils 91 % (50-85); Total Cells Counted 100
[2020-04-02] MEDS: INSULIN REGULAR 100 UNIT/ML SUBCUT SCH ×4 (06:22→23:25)
[2020-04-02] MEDS: HEPARIN DRIP 25,000 UNITS/500 ML PREMIX IV SCH (06:22)
[2020-04-02 07:13] LABS: SARS-CoV-2 Total Ab Interp Reactive
[2020-04-02] MEDS: PANTOPRAZOLE 40 MG VIAL IV SCH (08:23)
[2020-04-02] MEDS: levETIRAcetam LIQUID 100 MG/ML 30 ML/BOTTLE PO SCH ×2 (08:24→20:56)
[2020-04-02] MEDS ORDERED: SEVOFLURANE 1 UNIT/15 MINUTE INH ONE (11:15)
[2020-04-02] MEDS ORDERED: MIDAZOLAM 10 MG/2 ML VIAL ONE (11:15)
[2020-04-02] MEDS ORDERED: fentaNYL 250 MCG/5 ML VIAL ONE (11:16)
[2020-04-02] MEDS ORDERED: PHENYLEPHRINE 1 MG/10 ML SYRINGE IV ONE (11:16)
[2020-04-02] MEDS: DEXAMETHASONE 4 MG/1 ML VIAL IV SCH (14:41)
[2020-04-02] MEDS: VANCOMYCIN INJ 1,500 MG in SODIUM CHLORIDE 0.9% 500 ML IV SCH (14:45)
[2020-04-02] MEDS: MICAFUNGIN 100 MG in SODIUM CHLORIDE 0.9% 100 ML IV SCH (18:41)
[2020-04-02] MEDS: INSULIN GLARGINE 100 UNIT/ML SUBCUT SCH (21:25)
[2020-04-03 02:59] LABS: Basophils % 0.1 % (0.0-0.8); Eosinophils % 0.2 % (0.00-10.9); Hematocrit 31.6 VOL% (35.7-47.0); Immature Granulocytes % 1.4 %; Immature Granulocytes Absolute 0.12 #; Lymphocytes # 0.6 10*3/uL (1.4-4.0); Lymphocytes % 6.7 % (21.3-54.2); Mean Corpuscular HGB Conc 31.6 GM/DL (32-36); Mean Corpuscular Volume 93.8 FL (87-102); Mean Platelet Volume 11.3 FL (9.6-12.0); Monocytes % 8.2 % (1.7-12.7); Neutrophils % 83.4 % (38.7-73.9); Platelet Count 182 T/CUMM (130-400); Red Blood Count 3.37 MC/CUMM (3.8-5.5); Red Cell Distribution Width 15.9 % (9.3-17.3); White Blood Count 8.4 T/CUMM (4-12)
[2020-04-03 03:07] LABS: Calcium 7.4 MG/DL (8.5-10.1); Osmolality,Calculated 311.7 MOS/KG (273-304)
[2020-04-03] MEDS: HEPARIN DRIP 25,000 UNITS/500 ML PREMIX IV SCH ×2 (05:19→15:26)
[2020-04-03] MEDS: INSULIN REGULAR 100 UNIT/ML SUBCUT SCH ×3 (06:28→17:49)
[2020-04-03 06:42] LABS: ABG Base Excess 2.8 MMOL/L (-2.5-2.5); ABG HCO3 26.9 MMOL/L (20-26); ABG Oxygen Saturation 98.2 % (95-100); ABG PCO2 38.6 MM HG (35-48); ABG PH 7.449 (7.35-7.45); Allen Test Positive; Pt O2 Delivery Device Ventilator
[2020-04-03] MEDS ORDERED: HEPARIN 5,000 UNIT/1 ML VIAL IV ONE ×2 (08:19→15:09)
[2020-04-03] MEDS: PANTOPRAZOLE 40 MG VIAL IV SCH (08:21)
[2020-04-03] MEDS: levETIRAcetam LIQUID 100 MG/ML 30 ML/BOTTLE PO SCH ×2 (08:21→20:42)
[2020-04-03] MEDS ORDERED: INSULIN GLARGINE 100 UNIT/ML SUBCUT SCH (13:46)
[2020-04-03] MEDS ORDERED: MAGNESIUM SULF RIDER 2 GM in PREMIX 1 EACH IV PRN (13:47)
[2020-04-03] MEDS ORDERED: MAGNESIUM SULF RIDER 4 GM in PREMIX 1 EACH IV PRN (13:47)
[2020-04-03] MEDS ORDERED: ALTEPLASE 2 MG VIAL INTRACATH ONE (14:21)
[2020-04-03] MEDS: AMIKACIN 1,000 MG in SODIUM CHLORIDE 0.9% 100 ML IV SCH (15:24)
[2020-04-03] MEDS: DEXAMETHASONE 4 MG/1 ML VIAL IV SCH (15:25)
[2020-04-03] MEDS: FUROSEMIDE 40 MG/4 ML VIAL IV SCH (15:27)
[2020-04-03] MEDS: MICAFUNGIN 100 MG in SODIUM CHLORIDE 0.9% 100 ML IV SCH (17:51)
[2020-04-03] MEDS: METOPROLOL TARTRATE 25 MG TABLET PO SCH (20:43)
[2020-04-04] MEDS: INSULIN REGULAR 100 UNIT/ML SUBCUT SCH ×4 (00:49→17:33)
[2020-04-04 04:52] LABS: ABG Base Excess 5.3 MMOL/L (-2.5-2.5); ABG HCO3 29.1 MMOL/L (20-26); ABG Oxygen Saturation 96.3 % (95-100); ABG PCO2 40.8 MM HG (35-48); ABG PH 7.466 (7.35-7.45); ABG PO2 81.7 MM HG (80-95); ABG TCO2 25.5 MMOL/L (23-27); Allen Test Positive; Pt O2 Delivery Device Ventilator
[2020-04-04] MEDS ORDERED: HEPARIN 5,000 UNIT/1 ML VIAL IV ONE ×2 (05:12→20:32)
[2020-04-04 05:27] LABS: Basophils % 0.2 % (0.0-0.8); Eosinophils % 0.2 % (0.00-10.9); Hematocrit 30.9 VOL% (35.7-47.0); Hemoglobin 9.8 GM/DL (12.0-16.0); Immature Granulocytes % 1.2 %; Immature Granulocytes Absolute 0.11 #; Lymphocytes # 0.7 10*3/uL (1.4-4.0); Lymphocytes % 7.5 % (21.3-54.2); Mean Corpuscular HGB Conc 31.7 GM/DL (32-36); Mean Corpuscular Volume 93.6 FL (87-102); Mean Platelet Volume 11.2 FL (9.6-12.0); Monocytes % 10.4 % (1.7-12.7); Neutrophils % 80.5 % (38.7-73.9); Platelet Count 168 T/CUMM (130-400); Red Cell Distribution Width 16.1 % (9.3-17.3); White Blood Count 9.4 T/CUMM (4-12)
[2020-04-04 05:53] LABS: Calcium 7.7 MG/DL (8.5-10.1); Osmolality,Calculated 317.9 MOS/KG (273-304)
[2020-04-04] MEDS ORDERED: POTASSIUM CHLORIDE RIDER 10 MEQ in PREMIX 1 EACH IV PRN (07:16)
[2020-04-04] MEDS: FUROSEMIDE 40 MG/4 ML VIAL IV SCH ×2 (07:48→15:05)
[2020-04-04] MEDS: POTASSIUM CHLORIDE RIDER 20 MEQ in PREMIX 1 EACH IV PRN ×2 (07:49→11:24)
[2020-04-04] MEDS: PANTOPRAZOLE 40 MG VIAL IV SCH (08:05)
[2020-04-04] MEDS: levETIRAcetam LIQUID 100 MG/ML 30 ML/BOTTLE PO SCH ×2 (08:05→20:47)
[2020-04-04] MEDS: METOPROLOL TARTRATE 25 MG TABLET PO SCH ×2 (08:05→20:47)
[2020-04-04] MEDS: ACETAMINOPHEN 325 MG TABLET PO PRN (11:32)
[2020-04-04] MEDS: DEXAMETHASONE 4 MG/1 ML VIAL IV SCH (15:05)
[2020-04-04] MEDS: MICAFUNGIN 100 MG in SODIUM CHLORIDE 0.9% 100 ML IV SCH (18:13)
[2020-04-04] MEDS: HEPARIN DRIP 25,000 UNITS/500 ML PREMIX IV SCH ×2 (19:39)
[2020-04-04] MEDS: INSULIN GLARGINE 100 UNIT/ML SUBCUT SCH (20:47)
[2020-04-05] MEDS: INSULIN REGULAR 100 UNIT/ML SUBCUT SCH ×4 (00:35→17:05)
[2020-04-05 05:07] LABS: ABG Base Excess 6.8 MMOL/L (-2.5-2.5); ABG HCO3 30.8 MMOL/L (20-26); ABG Oxygen Saturation 98.4 % (95-100); ABG PCO2 41.3 MM HG (35-48); ABG PO2 141.3 MM HG (80-95); Allen Test Positive; Pt O2 Delivery Device Ventilator
[2020-04-05 06:03] LABS: Basophils % 0.2 % (0.0-0.8); Eosinophils # 0.1 10*3/uL (0.0-0.87); Eosinophils % 0.4 % (0.00-10.9); Hematocrit 30.2 VOL% (35.7-47.0); Hemoglobin 9.5 GM/DL (12.0-16.0); Immature Granulocytes % 1.2 %; Immature Granulocytes Absolute 0.14 #; Lymphocytes # 0.9 10*3/uL (1.4-4.0); Lymphocytes % 8.1 % (21.3-54.2); Mean Corpuscular HGB Conc 31.5 GM/DL (32-36); Mean Corpuscular Volume 94.4 FL (87-102); Mean Platelet Volume 11.4 FL (9.6-12.0); Monocytes % 8.8 % (1.7-12.7); Neutrophils % 81.3 % (38.7-73.9); Platelet Count 161 T/CUMM (130-400); White Blood Count 11.3 T/CUMM (4-12)
[2020-04-05 06:09] LABS: Calcium 7.9 MG/DL (8.5-10.1); Osmolality,Calculated 307.3 MOS/KG (273-304)
[2020-04-05] MEDS: POTASSIUM CHLORIDE RIDER 20 MEQ in PREMIX 1 EACH IV PRN ×2 (06:14→08:14)
[2020-04-05] MEDS: PANTOPRAZOLE 40 MG VIAL IV SCH (08:05)
[2020-04-05] MEDS: levETIRAcetam LIQUID 100 MG/ML 30 ML/BOTTLE PO SCH ×2 (08:06→20:59)
[2020-04-05] MEDS: amLODIPine 10 MG TABLET PER TUBE SCH (08:06)
[2020-04-05] MEDS: METOPROLOL TARTRATE 25 MG TABLET PO SCH ×2 (08:06→20:59)
[2020-04-05] MEDS: VANCOMYCIN INJ 1,500 MG in SODIUM CHLORIDE 0.9% 500 ML IV SCH (10:56)
[2020-04-05] MEDS ORDERED: HEPARIN 5,000 UNIT/1 ML VIAL IV ONE ×2 (11:28→18:18)
[2020-04-05] MEDS: lisinopriL 20 MG TABLET PO SCH (11:43)
[2020-04-05] MEDS: AMIKACIN 1,000 MG in SODIUM CHLORIDE 0.9% 100 ML IV SCH (11:51)
[2020-04-05] MEDS: DEXAMETHASONE 4 MG/1 ML VIAL IV SCH (15:24)
[2020-04-05] MEDS: MICAFUNGIN 100 MG in SODIUM CHLORIDE 0.9% 100 ML IV SCH (17:28)
[2020-04-05] MEDS: HEPARIN DRIP 25,000 UNITS/500 ML PREMIX IV SCH (18:36)
[2020-04-05] MEDS: INSULIN GLARGINE 100 UNIT/ML SUBCUT SCH (20:59)
[2020-04-06] MEDS: INSULIN REGULAR 100 UNIT/ML SUBCUT SCH ×4 (00:51→17:44)
[2020-04-06] MEDS: HEPARIN DRIP 25,000 UNITS/500 ML PREMIX IV SCH (02:01)
[2020-04-06 05:01] LABS: ABG Base Excess 7.7 MMOL/L (-2.5-2.5); ABG HCO3 31.5 MMOL/L (20-26); ABG Oxygen Saturation 99.2 % (95-100); ABG PCO2 41.2 MM HG (35-48); ABG PH 7.494 (7.35-7.45); ABG TCO2 28.3 MMOL/L (23-27); Allen Test Positive; Pt O2 Delivery Device Ventilator
[2020-04-06 05:35] LABS: Basophils % 0.1 % (0.0-0.8); Eosinophils % 0.3 % (0.00-10.9); Hematocrit 29.4 VOL% (35.7-47.0); Hemoglobin 9.3 GM/DL (12.0-16.0); Immature Granulocytes % 1.8 %; Immature Granulocytes Absolute 0.16 #; Lymphocytes # 0.9 10*3/uL (1.4-4.0); Lymphocytes % 9.6 % (21.3-54.2); Mean Corpuscular HGB Conc 31.6 GM/DL (32-36); Mean Corpuscular Volume 94.5 FL (87-102); Mean Platelet Volume 11.4 FL (9.6-12.0); Monocytes % 8.6 % (1.7-12.7); Neutrophils % 79.6 % (38.7-73.9); Platelet Count 165 T/CUMM (130-400); Red Blood Count 3.11 MC/CUMM (3.8-5.5); Red Cell Distribution Width 15.9 % (9.3-17.3); White Blood Count 9.1 T/CUMM (4-12)
[2020-04-06 06:02] LABS: Calcium 7.8 MG/DL (8.5-10.1); Osmolality,Calculated 309.3 MOS/KG (273-304)
[2020-04-06] MEDS: POTASSIUM CHLORIDE RIDER 20 MEQ in PREMIX 1 EACH IV PRN (06:22)
[2020-04-06] MEDS: hydrALAZINE 20 MG/1 ML VIAL IV PRN (06:38)
[2020-04-06] MEDS: PANTOPRAZOLE 40 MG VIAL IV SCH (08:05)
[2020-04-06] MEDS: amLODIPine 10 MG TABLET PER TUBE SCH (08:05)
[2020-04-06] MEDS: lisinopriL 20 MG TABLET PO SCH (08:05)
[2020-04-06] MEDS: METOPROLOL TARTRATE 25 MG TABLET PO SCH ×2 (08:10→20:41)
[2020-04-06] MEDS: levETIRAcetam LIQUID 100 MG/ML 30 ML/BOTTLE PO SCH ×3 (08:10→20:41)
[2020-04-06] MEDS ORDERED: HEPARIN 5,000 UNIT/1 ML VIAL IV PRN (11:00)
[2020-04-06] MEDS: POTASSIUM CHLORIDE 20 MEQ/15 ML UDCUP PER TUBE SCH (11:37)
[2020-04-06] MEDS: MORPHINE 4 MG/1 ML VIAL IV PRN (11:38)
[2020-04-06] MEDS: DEXAMETHASONE 4 MG/1 ML VIAL IV SCH (15:35)
[2020-04-06] MEDS: ENOXAPARIN 100 MG/ML SYRINGE SUBCUT SCH (15:42)
[2020-04-06] MEDS: MICAFUNGIN 100 MG in SODIUM CHLORIDE 0.9% 100 ML IV SCH (17:44)
[2020-04-06] MEDS: INSULIN GLARGINE 100 UNIT/ML SUBCUT SCH (20:41)
[2020-04-07] MEDS: INSULIN REGULAR 100 UNIT/ML SUBCUT SCH ×4 (00:32→17:54)
[2020-04-07] MEDS: ENOXAPARIN 100 MG/ML SYRINGE SUBCUT SCH ×2 (00:32→12:32)
[2020-04-07 04:20] LABS: ABG HCO3 31.8 MMOL/L (20-26); ABG Oxygen Saturation 99.7 % (95-100); ABG PH 7.483 (7.35-7.45); ABG TCO2 29.6 MMOL/L (23-27); Allen Test Positive; Pt O2 Delivery Device Ventilator
[2020-04-07] MEDS: levETIRAcetam LIQUID 100 MG/ML 30 ML/BOTTLE PO SCH ×2 (08:20→20:35)
[2020-04-07] MEDS: POTASSIUM CHLORIDE 20 MEQ/15 ML UDCUP PER TUBE SCH (08:20)
[2020-04-07] MEDS: PANTOPRAZOLE 40 MG VIAL IV SCH (08:20)
[2020-04-07] MEDS: amLODIPine 10 MG TABLET PER TUBE SCH (08:21)
[2020-04-07] MEDS: METOPROLOL TARTRATE 25 MG TABLET PO SCH ×2 (08:21→20:35)
[2020-04-07] MEDS: lisinopriL 20 MG TABLET PO SCH (08:21)
[2020-04-07 09:11] LABS: Basophils % 0.2 % (0.0-0.8); Eosinophils # 0.2 10*3/uL (0.0-0.87); Eosinophils % 2.1 % (0.00-10.9); Hematocrit 28.8 VOL% (35.7-47.0); Hemoglobin 9.1 GM/DL (12.0-16.0); Immature Granulocytes % 1.7 %; Immature Granulocytes Absolute 0.15 #; Lymphocytes % 11.7 % (21.3-54.2); Mean Corpuscular HGB Conc 31.6 GM/DL (32-36); Mean Corpuscular Volume 92.9 FL (87-102); Mean Platelet Volume 10.9 FL (9.6-12.0); Monocytes % 7.7 % (1.7-12.7); Neutrophils % 76.6 % (38.7-73.9); Platelet Count 190 T/CUMM (130-400); Red Cell Distribution Width 16.2 % (9.3-17.3); White Blood Count 8.6 T/CUMM (4-12)
[2020-04-07 09:37] LABS: Calcium 7.4 MG/DL (8.5-10.1); Osmolality,Calculated 292.8 MOS/KG (273-304)
[2020-04-07] MEDS: AMIKACIN 1,000 MG in SODIUM CHLORIDE 0.9% 100 ML IV SCH (13:15)
[2020-04-07] MEDS: DEXAMETHASONE 4 MG/1 ML VIAL IV SCH (15:25)
[2020-04-07] MEDS: MICAFUNGIN 100 MG in SODIUM CHLORIDE 0.9% 100 ML IV SCH (17:55)
[2020-04-07] MEDS: INSULIN GLARGINE 100 UNIT/ML SUBCUT SCH (20:35)
[2020-04-08] MEDS: INSULIN REGULAR 100 UNIT/ML SUBCUT SCH ×5 (00:52→18:02)
[2020-04-08] MEDS: ENOXAPARIN 100 MG/ML SYRINGE SUBCUT SCH ×2 (00:52→13:36)
[2020-04-08 03:49] LABS: ABG Base Excess 7.5 MMOL/L (-2.5-2.5); ABG HCO3 31.4 MMOL/L (20-26); ABG Oxygen Saturation 99.7 % (95-100); ABG PCO2 39.3 MM HG (35-48); ABG PH 7.507 (7.35-7.45); ABG TCO2 27.1 MMOL/L (23-27); Allen Test Positive; Pt O2 Delivery Device Ventilator
[2020-04-08 05:45] LABS: Basophils % 0.2 % (0.0-0.8); Eosinophils % 0.4 % (0.00-10.9); Hematocrit 28.3 VOL% (35.7-47.0); Hemoglobin 8.8 GM/DL (12.0-16.0); Immature Granulocytes % 1.6 %; Immature Granulocytes Absolute 0.14 #; Lymphocytes # 1.3 10*3/uL (1.4-4.0); Lymphocytes % 14.6 % (21.3-54.2); Mean Corpuscular HGB Conc 31.1 GM/DL (32-36); Mean Corpuscular Volume 95.6 FL (87-102); Mean Platelet Volume 11.4 FL (9.6-12.0); Monocytes % 6.6 % (1.7-12.7); Neutrophils % 76.6 % (38.7-73.9); Platelet Count 197 T/CUMM (130-400); Red Blood Count 2.96 MC/CUMM (3.8-5.5); Red Cell Distribution Width 15.9 % (9.3-17.3); White Blood Count 8.5 T/CUMM (4-12)
[2020-04-08 06:01] LABS: Calcium 6.3 MG/DL (8.5-10.1)
[2020-04-08] MEDS ORDERED: MAGNESIUM SULF RIDER 2 GM in PREMIX 1 EACH IV ONE (07:54)
[2020-04-08] MEDS ORDERED: POTASSIUM CHLORIDE 20 MEQ/15 ML UDCUP PER TUBE ONE (07:55)
[2020-04-08] MEDS: lisinopriL 20 MG TABLET PO SCH (08:22)
[2020-04-08] MEDS: amLODIPine 10 MG TABLET PER TUBE SCH (08:22)
[2020-04-08] MEDS: levETIRAcetam LIQUID 100 MG/ML 30 ML/BOTTLE PO SCH ×2 (08:23→20:52)
[2020-04-08] MEDS: METOPROLOL TARTRATE 25 MG TABLET PO SCH ×2 (08:23→20:53)
[2020-04-08] MEDS: POTASSIUM CHLORIDE 20 MEQ/15 ML UDCUP PER TUBE SCH (08:23)
[2020-04-08] MEDS: PANTOPRAZOLE 40 MG VIAL IV SCH (08:23)
[2020-04-08] MEDS ORDERED: CALCIUM GLUCONATE 1,000 MG in SODIUM CHLORIDE 0.9% 100 ML IV ONE (09:00)
[2020-04-08] MEDS: VANCOMYCIN INJ 1,500 MG in SODIUM CHLORIDE 0.9% 500 ML IV SCH ×2 (14:09→14:10)
[2020-04-08] MEDS: DEXAMETHASONE 4 MG/1 ML VIAL IV SCH (15:40)
[2020-04-08] MEDS ORDERED: COLISTIMETHATE 300 MG in SODIUM CHLORIDE 0.9% 100 ML IV ONE (17:00)
[2020-04-08] MEDS: MICAFUNGIN 100 MG in SODIUM CHLORIDE 0.9% 100 ML IV SCH (18:50)
[2020-04-08] MEDS: INSULIN GLARGINE 100 UNIT/ML SUBCUT SCH (20:52)
[2020-04-09] MEDS: INSULIN REGULAR 100 UNIT/ML SUBCUT SCH ×4 (00:31→17:10)
[2020-04-09] MEDS: ENOXAPARIN 100 MG/ML SYRINGE SUBCUT SCH ×2 (00:31→12:40)
[2020-04-09 05:00] LABS: ABG Base Excess 5.1 MMOL/L (-2.5-2.5); ABG HCO3 29.3 MMOL/L (20-26); ABG Oxygen Saturation 98.5 % (95-100); ABG PH 7.462 (7.35-7.45); ABG PO2 153.7 MM HG (80-95); ABG TCO2 30.6 MMOL/L (23-27); Allen Test Positive; Pt O2 Delivery Device Ventilator
[2020-04-09 05:05] LABS: Basophils % 0.2 % (0.0-0.8); Eosinophils % 0.2 % (0.00-10.9); Hematocrit 28.9 VOL% (35.7-47.0); Hemoglobin 8.9 GM/DL (12.0-16.0); Immature Granulocytes % 1.4 %; Immature Granulocytes Absolute 0.14 #; Lymphocytes # 1.6 10*3/uL (1.4-4.0); Lymphocytes % 15.5 % (21.3-54.2); Mean Corpuscular HGB Conc 30.8 GM/DL (32-36); Mean Corpuscular Volume 96.7 FL (87-102); Mean Platelet Volume 11.5 FL (9.6-12.0); Monocytes % 4.9 % (1.7-12.7); Neutrophils % 77.8 % (38.7-73.9); Platelet Count 210 T/CUMM (130-400); Red Blood Count 2.99 MC/CUMM (3.8-5.5); Red Cell Distribution Width 15.7 % (9.3-17.3); White Blood Count 10.1 T/CUMM (4-12)
[2020-04-09 05:23] LABS: Calcium 7.1 MG/DL (8.5-10.1); Osmolality,Calculated 284.5 MOS/KG (273-304)
[2020-04-09] MEDS: PANTOPRAZOLE 40 MG VIAL IV SCH (08:25)
[2020-04-09] MEDS: levETIRAcetam LIQUID 100 MG/ML 30 ML/BOTTLE PO SCH ×2 (08:25→20:53)
[2020-04-09] MEDS: amLODIPine 10 MG TABLET PER TUBE SCH (08:25)
[2020-04-09] MEDS: lisinopriL 20 MG TABLET PO SCH (08:25)
[2020-04-09] MEDS: POTASSIUM CHLORIDE 20 MEQ/15 ML UDCUP PER TUBE SCH (08:25)
[2020-04-09] MEDS ORDERED: COLISTIMETHATE 150 MG in SODIUM CHLORIDE 0.9% 100 ML IV SCH (09:00)
[2020-04-09] MEDS: AMIKACIN 1,000 MG in SODIUM CHLORIDE 0.9% 100 ML IV SCH (12:30)
[2020-04-09] MEDS: DEXAMETHASONE 4 MG/1 ML VIAL IV SCH (15:34)
[2020-04-09] MEDS: MICAFUNGIN 100 MG in SODIUM CHLORIDE 0.9% 100 ML IV SCH (17:09)
[2020-04-09] MEDS: INSULIN GLARGINE 100 UNIT/ML SUBCUT SCH (20:53)
[2020-04-10] MEDS: ACETAMINOPHEN 325 MG TABLET PO PRN ×2 (00:14→08:05)
[2020-04-10] MEDS: INSULIN REGULAR 100 UNIT/ML SUBCUT SCH ×4 (01:13→17:50)
[2020-04-10] MEDS: ENOXAPARIN 100 MG/ML SYRINGE SUBCUT SCH ×2 (01:21→14:50)
[2020-04-10 04:45] LABS: Allen Test Positive; Pt O2 Delivery Device Ventilator
[2020-04-10 04:51] LABS: ABG Base Excess 1.2 MMOL/L (-2.5-2.5); ABG Oxygen Saturation 98.5 % (95-100); ABG PCO2 36.5 MM HG (35-48); ABG PH 7.453 (7.35-7.45); ABG PO2 154.1 MM HG (80-95); ABG TCO2 26.1 MMOL/L (23-27)
[2020-04-10] MEDS: MORPHINE 4 MG/1 ML VIAL IV PRN (06:15)
[2020-04-10] MEDS: levETIRAcetam LIQUID 100 MG/ML 30 ML/BOTTLE PO SCH ×2 (08:43→22:00)
[2020-04-10] MEDS: POTASSIUM CHLORIDE 20 MEQ/15 ML UDCUP PER TUBE SCH (08:44)
[2020-04-10] MEDS: PANTOPRAZOLE 40 MG VIAL IV SCH (08:44)
[2020-04-10] MEDS: lisinopriL 20 MG TABLET PO SCH (08:44)
[2020-04-10] MEDS: amLODIPine 10 MG TABLET PER TUBE SCH (08:44)
[2020-04-10 09:48] LABS: Basophils % 0.4 % (0.0-0.8); Eosinophils # 0.1 10*3/uL (0.0-0.87); Eosinophils % 1.2 % (0.00-10.9); Hematocrit 28.1 VOL% (35.7-47.0); Hemoglobin 8.7 GM/DL (12.0-16.0); Immature Granulocytes % 1.5 %; Immature Granulocytes Absolute 0.16 #; Lymphocytes # 1.9 10*3/uL (1.4-4.0); Lymphocytes % 18.3 % (21.3-54.2); Mean Corpuscular Volume 96.2 FL (87-102); Mean Platelet Volume 11.2 FL (9.6-12.0); Monocytes % 6.5 % (1.7-12.7); Neutrophils % 72.1 % (38.7-73.9); Platelet Count 190 T/CUMM (130-400); Red Blood Count 2.92 MC/CUMM (3.8-5.5); Red Cell Distribution Width 15.9 % (9.3-17.3); White Blood Count 10.3 T/CUMM (4-12)
[2020-04-10 10:06] LABS: Calcium 7.1 MG/DL (8.5-10.1); Osmolality,Calculated 275.8 MOS/KG (273-304)
[2020-04-10 11:27] LABS: Apearance,Urine CLOUDY (Clear); Bilirubin,Urine Negative (Negative); Blood, Urine Negative (Negative); Glucose,Urine (UA) 50 mg/dL (Negative); Ketones,Urine Negative (Negative); Nitrite,Urine Negative (Negative); Protein,Urine >=500 MG/DL; RBC,Urine 35 /HPF (0-4); Urine Color Yellow (Yellow); Urine Urobilinogen < 2.0 EU/DL (0.2-1.0); WBC,Urine 215 /HPF (0-6)
[2020-04-10] MEDS: VANCOMYCIN INJ 1,500 MG in SODIUM CHLORIDE 0.9% 500 ML IV SCH (12:53)
[2020-04-10] MEDS: DEXAMETHASONE 4 MG/1 ML VIAL IV SCH (16:45)
[2020-04-10] MEDS ORDERED: SODIUM CHLORIDE 0.9% 100 ML IV ONE (17:53)
[2020-04-10] MEDS: MICAFUNGIN 100 MG in SODIUM CHLORIDE 0.9% 100 ML IV SCH (17:58)
[2020-04-10] MEDS: INSULIN GLARGINE 100 UNIT/ML SUBCUT SCH (20:52)
[2020-04-11] MEDS: INSULIN REGULAR 100 UNIT/ML SUBCUT SCH ×4 (01:30→18:20)
[2020-04-11] MEDS: ENOXAPARIN 100 MG/ML SYRINGE SUBCUT SCH ×2 (01:31→12:37)
[2020-04-11 03:22] LABS: Allen Test Positive
[2020-04-11 03:24] LABS: ABG Base Excess -2.5 MMOL/L (-2.5-2.5); ABG HCO3 22.3 MMOL/L (20-26); ABG Oxygen Saturation 99.3 % (95-100); ABG PCO2 35.7 MM HG (35-48); ABG PH 7.396 (7.35-7.45); ABG TCO2 20.3 MMOL/L (23-27)
[2020-04-11 05:23] LABS: Basophils % 0.3 % (0.0-0.8); Hematocrit 29.3 VOL% (35.7-47.0); Hemoglobin 9.1 GM/DL (12.0-16.0); Immature Granulocytes % 1.4 %; Immature Granulocytes Absolute 0.16 #; Lymphocytes # 2.2 10*3/uL (1.4-4.0); Lymphocytes % 19.8 % (21.3-54.2); Mean Corpuscular HGB Conc 31.1 GM/DL (32-36); Mean Corpuscular Volume 96.7 FL (87-102); Mean Platelet Volume 11.8 FL (9.6-12.0); Monocytes % 4.1 % (1.7-12.7); Neutrophils % 74.4 % (38.7-73.9); Platelet Count 184 T/CUMM (130-400); Red Blood Count 3.03 MC/CUMM (3.8-5.5); Red Cell Distribution Width 15.7 % (9.3-17.3); White Blood Count 11.2 T/CUMM (4-12)
[2020-04-11 05:41] LABS: Calcium 6.2 MG/DL (8.5-10.1); Osmolality,Calculated 284.5 MOS/KG (273-304)
[2020-04-11] MEDS: levETIRAcetam LIQUID 100 MG/ML 30 ML/BOTTLE PO SCH ×2 (08:41→22:30)
[2020-04-11] MEDS: PANTOPRAZOLE 40 MG VIAL IV SCH (08:41)
[2020-04-11] MEDS: lisinopriL 20 MG TABLET PO SCH (08:41)
[2020-04-11] MEDS: amLODIPine 10 MG TABLET PER TUBE SCH (08:41)
[2020-04-11] MEDS: AMIKACIN 1,000 MG in SODIUM CHLORIDE 0.9% 100 ML IV SCH (14:42)
[2020-04-11] MEDS ORDERED: MAGNESIUM SULF RIDER 2 GM in PREMIX 1 EACH IV ONE (17:27)
[2020-04-11] MEDS: COLISTIMETHATE 150 MG in SODIUM CHLORIDE 0.9% 100 ML IV SCH (17:32)
[2020-04-11] MEDS: MICAFUNGIN 100 MG in SODIUM CHLORIDE 0.9% 100 ML IV SCH (18:20)
[2020-04-11] MEDS: INSULIN GLARGINE 100 UNIT/ML SUBCUT SCH (22:30)
[2020-04-12] MEDS: INSULIN REGULAR 100 UNIT/ML SUBCUT SCH ×4 (00:13→19:02)
[2020-04-12] MEDS: ENOXAPARIN 100 MG/ML SYRINGE SUBCUT SCH ×2 (01:30→12:34)
[2020-04-12 04:14] LABS: Allen Test Positive
[2020-04-12 04:23] LABS: Basophils % 0.2 % (0.0-0.8); Eosinophils # 0.2 10*3/uL (0.0-0.87); Eosinophils % 1.6 % (0.00-10.9); Hematocrit 28.2 VOL% (35.7-47.0); Hemoglobin 8.5 GM/DL (12.0-16.0); Immature Granulocytes % 1.2 %; Immature Granulocytes Absolute 0.15 #; Lymphocytes # 1.9 10*3/uL (1.4-4.0); Lymphocytes % 14.3 % (21.3-54.2); Mean Corpuscular HGB Conc 30.1 GM/DL (32-36); Mean Corpuscular Volume 97.2 FL (87-102); Mean Platelet Volume 11.7 FL (9.6-12.0); Monocytes % 6.5 % (1.7-12.7); NRBC # 0.02 10*3/uL; Neutrophils % 76.2 % (38.7-73.9); Platelet Count 194 T/CUMM (130-400); Red Cell Distribution Width 15.8 % (9.3-17.3)
[2020-04-12 04:24] LABS: ABG Base Excess -5.3 MMOL/L (-2.5-2.5); ABG HCO3 19.3 MMOL/L (20-26); ABG Oxygen Saturation 98.8 % (95-100); ABG PCO2 34.3 MM HG (35-48); ABG PH 7.369 (7.35-7.45); ABG PO2 165.5 MM HG (80-95); ABG TCO2 20.4 MMOL/L (23-27)
[2020-04-12] MEDS: COLISTIMETHATE 150 MG in SODIUM CHLORIDE 0.9% 100 ML IV SCH ×2 (04:34→16:45)
[2020-04-12 04:51] LABS: Calcium 6.9 MG/DL (8.5-10.1); Osmolality,Calculated 285.5 MOS/KG (273-304)
[2020-04-12] MEDS: amLODIPine 10 MG TABLET PER TUBE SCH (08:36)
[2020-04-12] MEDS: lisinopriL 20 MG TABLET PO SCH (08:36)
[2020-04-12] MEDS: levETIRAcetam LIQUID 100 MG/ML 30 ML/BOTTLE PO SCH ×2 (08:36→21:24)
[2020-04-12] MEDS: PANTOPRAZOLE 40 MG VIAL IV SCH (08:36)
[2020-04-12] MEDS: ACETAMINOPHEN 325 MG TABLET PO PRN (08:47)
[2020-04-12] MEDS ORDERED: FUROSEMIDE 40 MG/4 ML VIAL IV ONE (12:11)
[2020-04-12] MEDS: DEXTROSE 10% 250 ML BAG IV PRN (12:13)
[2020-04-12] MEDS: VANCOMYCIN INJ 1,500 MG in SODIUM CHLORIDE 0.9% 500 ML IV SCH (14:29)
[2020-04-12] MEDS: MICAFUNGIN 100 MG in SODIUM CHLORIDE 0.9% 100 ML IV SCH (18:55)
[2020-04-12] MEDS: MEROPENEM 500 MG in SODIUM CHLORIDE 0.9% 100 ML IV SCH (18:55)
[2020-04-12] MEDS: INSULIN GLARGINE 100 UNIT/ML SUBCUT SCH (21:24)
[2020-04-13] MEDS: MEROPENEM 500 MG in SODIUM CHLORIDE 0.9% 100 ML IV SCH ×2 (00:03→06:07)
[2020-04-13] MEDS: INSULIN REGULAR 100 UNIT/ML SUBCUT SCH ×4 (00:17→18:00)
[2020-04-13] MEDS: ENOXAPARIN 100 MG/ML SYRINGE SUBCUT SCH ×2 (01:03→13:43)
[2020-04-13] MEDS: COLISTIMETHATE 150 MG in SODIUM CHLORIDE 0.9% 100 ML IV SCH (03:55)
[2020-04-13 05:19] LABS: ABG Base Excess -6.4 MMOL/L (-2.5-2.5); ABG HCO3 16.2 MMOL/L (20-26); ABG Oxygen Saturation 98.7 % (95-100); ABG PCO2 25.9 MM HG (35-48); ABG PH 7.415 (7.35-7.45); ABG PO2 130.4 MM HG (80-95)
[2020-04-13 05:29] LABS: Calcium 7.4 MG/DL (8.5-10.1); Osmolality,Calculated 280.1 MOS/KG (273-304)
[2020-04-13] MEDS: ACETAMINOPHEN 325 MG TABLET PO PRN (05:42)
[2020-04-13] MEDS: amLODIPine 10 MG TABLET PER TUBE SCH (08:45)
[2020-04-13] MEDS: lisinopriL 20 MG TABLET PO SCH (08:45)
[2020-04-13] MEDS: MENTHOL/ZINC OXIDE OINT 71 GM JAR TOP SCH (08:45)
[2020-04-13] MEDS: levETIRAcetam LIQUID 100 MG/ML 30 ML/BOTTLE PO SCH ×2 (08:45→20:54)
[2020-04-13] MEDS: PANTOPRAZOLE 40 MG VIAL IV SCH (08:45)
[2020-04-13] MEDS: MORPHINE 4 MG/1 ML VIAL IV PRN (10:06)
[2020-04-13] MEDS: AMIKACIN 1,000 MG in SODIUM CHLORIDE 0.9% 100 ML IV SCH (12:45)
[2020-04-13 14:03] LABS: Basophils % 0.1 % (0.0-0.8); Eosinophils # 0.2 10*3/uL (0.0-0.87); Eosinophils % 1.4 % (0.00-10.9); Hematocrit 24.9 VOL% (35.7-47.0); Hemoglobin 7.6 GM/DL (12.0-16.0); Immature Granulocytes % 1.2 %; Immature Granulocytes Absolute 0.16 #; Lymphocytes # 2.3 10*3/uL (1.4-4.0); Lymphocytes % 17.4 % (21.3-54.2); Mean Corpuscular HGB Conc 30.5 GM/DL (32-36); Mean Corpuscular Volume 96.9 FL (87-102); Mean Platelet Volume 11.5 FL (9.6-12.0); Monocytes % 8.2 % (1.7-12.7); Neutrophils % 71.7 % (38.7-73.9); Platelet Count 185 T/CUMM (130-400); Red Blood Count 2.57 MC/CUMM (3.8-5.5); Red Cell Distribution Width 16.1 % (9.3-17.3); White Blood Count 13.5 T/CUMM (4-12)
[2020-04-13] MEDS: COLISTIMETHATE IV SCH (20:47)
[2020-04-13] MEDS: INSULIN GLARGINE 100 UNIT/ML SUBCUT SCH (20:47)
[2020-04-13] MEDS: SODIUM CHLORIDE 0.9% IV SCH (20:47)
[2020-04-14] MEDS: ENOXAPARIN 100 MG/ML SYRINGE SUBCUT SCH ×2 (01:15→12:51)
[2020-04-14] MEDS: INSULIN REGULAR 100 UNIT/ML SUBCUT SCH ×4 (01:15→17:39)
[2020-04-14 03:57] LABS: Basophils % 0.2 % (0.0-0.8); Eosinophils # 0.2 10*3/uL (0.0-0.87); Eosinophils % 1.3 % (0.00-10.9); Hematocrit 23.1 VOL% (35.7-47.0); Hemoglobin 7.4 GM/DL (12.0-16.0); Immature Granulocytes % 0.9 %; Immature Granulocytes Absolute 0.12 #; Lymphocytes # 2.6 10*3/uL (1.4-4.0); Lymphocytes % 19.9 % (21.3-54.2); Mean Corpuscular Volume 94.7 FL (87-102); Mean Platelet Volume 11.2 FL (9.6-12.0); Monocytes % 6.5 % (1.7-12.7); Neutrophils % 71.2 % (38.7-73.9); Platelet Count 183 T/CUMM (130-400); Red Blood Count 2.44 MC/CUMM (3.8-5.5); Red Cell Distribution Width 15.9 % (9.3-17.3); White Blood Count 12.9 T/CUMM (4-12)
[2020-04-14 04:20] LABS: Albumin 1.5 G/DL (3.4-5.0); Bilirubin,Total 0.4 MG/DL (0.2-1.0); Calcium 7.4 MG/DL (8.5-10.1); Osmolality,Calculated 279.1 MOS/KG (273-304); Total Protein 5.2 G/DL (6.4-8.3)
[2020-04-14 04:34] LABS: ABG Base Excess -6.2 MMOL/L (-2.5-2.5); ABG HCO3 17.7 MMOL/L (20-26); ABG Oxygen Saturation 98.7 % (95-100); ABG PCO2 28.3 MM HG (35-48); ABG PH 7.414 (7.35-7.45); ABG PO2 157.6 MM HG (80-95); ABG TCO2 18.6 MMOL/L (23-27); Allen Test Positive; Pt O2 Delivery Device Other
[2020-04-14] MEDS: levETIRAcetam LIQUID 100 MG/ML 30 ML/BOTTLE PO SCH ×2 (08:00→21:44)
[2020-04-14] MEDS: amLODIPine 10 MG TABLET PER TUBE SCH (08:00)
[2020-04-14] MEDS: lisinopriL 20 MG TABLET PO SCH (08:00)
[2020-04-14] MEDS: MENTHOL/ZINC OXIDE OINT 71 GM JAR TOP SCH (08:01)
[2020-04-14] MEDS: PANTOPRAZOLE 40 MG VIAL IV SCH (08:47)
[2020-04-14] MEDS: COLISTIMETHATE IV SCH (09:28)
[2020-04-14] MEDS: SODIUM CHLORIDE 0.9% IV SCH (09:28)
[2020-04-14] MEDS: VANCOMYCIN INJ 1,500 MG in SODIUM CHLORIDE 0.9% 500 ML IV SCH ×2 (12:13→12:52)
[2020-04-14] MEDS: ACETAMINOPHEN 325 MG TABLET PO PRN (13:42)
[2020-04-14] MEDS: LEVOFLOXACIN INJ 750 MG in PREMIX 1 EACH IV SCH (16:01)
[2020-04-14] MEDS: MEROPENEM 1,000 MG in SODIUM CHLORIDE 0.9% 100 ML IV SCH (17:36)
[2020-04-14] MEDS: INSULIN GLARGINE 100 UNIT/ML SUBCUT SCH (21:44)
[2020-04-15] MEDS: INSULIN REGULAR 100 UNIT/ML SUBCUT SCH ×5 (00:36→23:59)
[2020-04-15] MEDS: MEROPENEM 1,000 MG in SODIUM CHLORIDE 0.9% 100 ML IV SCH ×2 (00:48→17:07)
[2020-04-15] MEDS: ENOXAPARIN 100 MG/ML SYRINGE SUBCUT SCH ×2 (02:01→12:40)
[2020-04-15] MEDS: ACETAMINOPHEN 325 MG TABLET PO PRN ×3 (02:45→20:48)
[2020-04-15 04:21] LABS: Basophils % 0.1 % (0.0-0.8); Eosinophils # 0.3 10*3/uL (0.0-0.87); Eosinophils % 1.8 % (0.00-10.9); Hematocrit 20.3 VOL% (35.7-47.0); Immature Granulocytes Absolute 0.14 #; Lymphocytes # 2.5 10*3/uL (1.4-4.0); Lymphocytes % 17.8 % (21.3-54.2); Mean Corpuscular Volume 98.1 FL (87-102); Mean Platelet Volume 11.3 FL (9.6-12.0); Monocytes % 6.1 % (1.7-12.7); Neutrophils % 73.2 % (38.7-73.9); Platelet Count 183 T/CUMM (130-400); Red Blood Count 2.07 MC/CUMM (3.8-5.5); White Blood Count 14.2 T/CUMM (4-12)
[2020-04-15 04:29] LABS: ABG Base Excess -5.8 MMOL/L (-2.5-2.5); ABG HCO3 17.8 MMOL/L (20-26); ABG Oxygen Saturation 98.3 % (95-100); ABG PCO2 26.9 MM HG (35-48); ABG PH 7.438 (7.35-7.45); ABG PO2 125.1 MM HG (80-95); ABG TCO2 18.6 MMOL/L (23-27)
[2020-04-15 04:30] LABS: Hemoglobin 6.1 GM/DL (12.0-16.0)
[2020-04-15] MEDS ORDERED: SODIUM CHLORIDE 0.9% 1,000 ML IV PRN (04:36)
[2020-04-15 04:40] LABS: Calcium 7.3 MG/DL (8.5-10.1); Osmolality,Calculated 277.2 MOS/KG (273-304)
[2020-04-15] MEDS: levETIRAcetam LIQUID 100 MG/ML 30 ML/BOTTLE PO SCH ×2 (08:42→20:48)
[2020-04-15] MEDS: lisinopriL 20 MG TABLET PO SCH (08:42)
[2020-04-15] MEDS: amLODIPine 10 MG TABLET PER TUBE SCH (08:42)
[2020-04-15] MEDS: PANTOPRAZOLE 40 MG VIAL IV SCH (08:42)
[2020-04-15] MEDS: MENTHOL/ZINC OXIDE OINT 71 GM JAR TOP SCH (08:43)
[2020-04-15 18:10] LABS: Hematocrit 30.5 VOL% (35.7-47.0)
[2020-04-15 18:11] LABS: Hemoglobin 9.6 GM/DL (12.0-16.0)
[2020-04-15] MEDS: INSULIN GLARGINE 100 UNIT/ML SUBCUT SCH (20:14)
[2020-04-16] MEDS ORDERED: AMIKACIN 1,000 MG in SODIUM CHLORIDE 0.9% 100 ML IV SCH
[2020-04-16] MEDS: ENOXAPARIN 100 MG/ML SYRINGE SUBCUT SCH ×2 (01:17→12:30)
[2020-04-16] MEDS: MEROPENEM 1,000 MG in SODIUM CHLORIDE 0.9% 100 ML IV SCH ×3 (01:58→17:14)
[2020-04-16 04:58] LABS: Basophils % 0.2 % (0.0-0.8); Eosinophils # 0.3 10*3/uL (0.0-0.87); Eosinophils % 2.3 % (0.00-10.9); Immature Granulocytes % 1.7 %; Immature Granulocytes Absolute 0.22 #; Lymphocytes # 1.9 10*3/uL (1.4-4.0); Lymphocytes % 14.3 % (21.3-54.2); Mean Corpuscular Volume 95.7 FL (87-102); Monocytes % 6.5 % (1.7-12.7); Platelet Count 201 T/CUMM (130-400); Red Blood Count 3.03 MC/CUMM (3.8-5.5); Red Cell Distribution Width 15.7 % (9.3-17.3); White Blood Count 13.3 T/CUMM (4-12)
[2020-04-16 05:16] LABS: Calcium 7.7 MG/DL (8.5-10.1); Osmolality,Calculated 280.2 MOS/KG (273-304)
[2020-04-16] MEDS: INSULIN REGULAR 100 UNIT/ML SUBCUT SCH ×3 (05:39→18:17)
[2020-04-16] MEDS: amLODIPine 10 MG TABLET PER TUBE SCH (08:13)
[2020-04-16] MEDS: MENTHOL/ZINC OXIDE OINT 71 GM JAR TOP SCH (08:13)
[2020-04-16] MEDS: lisinopriL 20 MG TABLET PO SCH (08:13)
[2020-04-16] MEDS: PANTOPRAZOLE 40 MG VIAL IV SCH (08:14)
[2020-04-16] MEDS: levETIRAcetam LIQUID 100 MG/ML 30 ML/BOTTLE PO SCH ×2 (08:16→21:12)
[2020-04-16] MEDS: ACETAMINOPHEN 325 MG TABLET PO PRN (08:35)
[2020-04-16] MEDS: LEVOFLOXACIN INJ 750 MG in PREMIX 1 EACH IV SCH (14:42)
[2020-04-16] MEDS: INSULIN GLARGINE 100 UNIT/ML SUBCUT SCH (21:12)
[2020-04-17] MEDS: INSULIN REGULAR 100 UNIT/ML SUBCUT SCH ×4 (00:02→19:11)
[2020-04-17] MEDS: ENOXAPARIN 100 MG/ML SYRINGE SUBCUT SCH ×2 (00:34→12:15)
[2020-04-17] MEDS: MEROPENEM 1,000 MG in SODIUM CHLORIDE 0.9% 100 ML IV SCH ×3 (00:45→17:07)
[2020-04-17 04:56] LABS: Albumin 1.5 G/DL (3.4-5.0); Bilirubin,Total 0.6 MG/DL (0.2-1.0); Calcium 7.4 MG/DL (8.5-10.1); Osmolality,Calculated 282.2 MOS/KG (273-304); Total Protein 5.7 G/DL (6.4-8.3)
[2020-04-17 05:30] LABS: Ferritin 1459.5 ng/ml (8-252)
[2020-04-17] MEDS: amLODIPine 10 MG TABLET PER TUBE SCH (09:45)
[2020-04-17] MEDS: lisinopriL 20 MG TABLET PO SCH (09:45)
[2020-04-17] MEDS: MENTHOL/ZINC OXIDE OINT 71 GM JAR TOP SCH (09:45)
[2020-04-17] MEDS: levETIRAcetam LIQUID 100 MG/ML 30 ML/BOTTLE PO SCH ×2 (09:45→21:58)
[2020-04-17] MEDS: PANTOPRAZOLE 40 MG VIAL IV SCH (11:07)
[2020-04-17] MEDS: INSULIN GLARGINE 100 UNIT/ML SUBCUT SCH (21:58)
[2020-04-18] MEDS: ENOXAPARIN 100 MG/ML SYRINGE SUBCUT SCH ×2 (00:43→13:23)
[2020-04-18] MEDS: MEROPENEM 1,000 MG in SODIUM CHLORIDE 0.9% 100 ML IV SCH ×3 (00:43→16:58)
[2020-04-18] MEDS: INSULIN REGULAR 100 UNIT/ML SUBCUT SCH ×4 (00:43→17:36)
[2020-04-18] MEDS: PANTOPRAZOLE 40 MG VIAL IV SCH (08:12)
[2020-04-18] MEDS: MENTHOL/ZINC OXIDE OINT 71 GM JAR TOP SCH (08:13)
[2020-04-18] MEDS: levETIRAcetam LIQUID 100 MG/ML 30 ML/BOTTLE PO SCH ×2 (08:13→22:31)
[2020-04-18] MEDS: LEVOFLOXACIN INJ 750 MG in PREMIX 1 EACH IV SCH (14:36)
[2020-04-18] MEDS: INSULIN GLARGINE 100 UNIT/ML SUBCUT SCH (22:11)
[2020-04-19] MEDS: INSULIN REGULAR 100 UNIT/ML SUBCUT SCH ×4 (00:29→17:33)
[2020-04-19] MEDS: ACETAMINOPHEN 325 MG TABLET PO PRN ×2 (01:13→10:19)
[2020-04-19] MEDS: MEROPENEM 1,000 MG in SODIUM CHLORIDE 0.9% 100 ML IV SCH ×3 (01:59→17:10)
[2020-04-19] MEDS ORDERED: SODIUM CHLORIDE 0.9% 1,000 ML IV ONE (02:15)
[2020-04-19] MEDS: ENOXAPARIN 100 MG/ML SYRINGE SUBCUT SCH ×2 (02:59→13:35)
[2020-04-19] MEDS: SODIUM CHLORIDE 0.9% 1,000 ML IV SCH ×3 (04:18→23:50)
[2020-04-19 05:45] LABS: Basophils % 0.2 % (0.0-0.8); Eosinophils # 0.2 10*3/uL (0.0-0.87); Eosinophils % 2.9 % (0.00-10.9); Hematocrit 26.1 VOL% (35.7-47.0); Hemoglobin 8.1 GM/DL (12.0-16.0); Immature Granulocytes % 2.7 %; Immature Granulocytes Absolute 0.22 #; Lymphocytes # 1.5 10*3/uL (1.4-4.0); Lymphocytes % 18.8 % (21.3-54.2); Mean Corpuscular Volume 93.9 FL (87-102); Mean Platelet Volume 10.7 FL (9.6-12.0); Monocytes % 7.5 % (1.7-12.7); Neutrophils % 67.9 % (38.7-73.9); Platelet Count 191 T/CUMM (130-400); Red Blood Count 2.78 MC/CUMM (3.8-5.5); Red Cell Distribution Width 15.3 % (9.3-17.3)
[2020-04-19 06:12] LABS: Calcium 7.2 MG/DL (8.5-10.1); Osmolality,Calculated 283.1 MOS/KG (273-304)
[2020-04-19] MEDS: PANTOPRAZOLE 40 MG VIAL IV SCH (10:20)
[2020-04-19] MEDS: levETIRAcetam LIQUID 100 MG/ML 30 ML/BOTTLE PO SCH ×2 (10:21→21:48)
[2020-04-19] MEDS: MENTHOL/ZINC OXIDE OINT 71 GM JAR TOP SCH (10:30)
[2020-04-19] MEDS ORDERED: ALBUMIN 5% 25 GM in PREMIX 1 EACH IV ONE (12:32)
[2020-04-19] MEDS: INSULIN GLARGINE 100 UNIT/ML SUBCUT SCH (21:48)
[2020-04-20] MEDS: INSULIN REGULAR 100 UNIT/ML SUBCUT SCH ×4 (01:08→18:30)
[2020-04-20] MEDS: ENOXAPARIN 100 MG/ML SYRINGE SUBCUT SCH (01:08)
[2020-04-20] MEDS: MEROPENEM 1,000 MG in SODIUM CHLORIDE 0.9% 100 ML IV SCH ×3 (01:11→17:51)
[2020-04-20 05:44] LABS: Eosinophils # 0.3 10*3/uL (0.0-0.87); Eosinophils % 3.8 % (0.00-10.9); Hematocrit 26.2 VOL% (35.7-47.0); Hemoglobin 8.2 GM/DL (12.0-16.0); Immature Granulocytes % 3.3 %; Immature Granulocytes Absolute 0.25 #; Lymphocytes # 1.6 10*3/uL (1.4-4.0); Mean Corpuscular HGB Conc 31.3 GM/DL (32-36); Mean Corpuscular Volume 93.9 FL (87-102); Mean Platelet Volume 10.1 FL (9.6-12.0); Monocytes % 6.3 % (1.7-12.7); Neutrophils % 65.6 % (38.7-73.9); Platelet Count 199 T/CUMM (130-400); Red Blood Count 2.79 MC/CUMM (3.8-5.5); Red Cell Distribution Width 15.3 % (9.3-17.3); White Blood Count 7.7 T/CUMM (4-12)
[2020-04-20 06:10] LABS: Calcium 7.3 MG/DL (8.5-10.1); Osmolality,Calculated 283.8 MOS/KG (273-304)
[2020-04-20] MEDS: PANTOPRAZOLE 40 MG VIAL IV SCH (08:54)
[2020-04-20] MEDS: levETIRAcetam LIQUID 100 MG/ML 30 ML/BOTTLE PO SCH ×2 (08:54→22:26)
[2020-04-20] MEDS: MENTHOL/ZINC OXIDE OINT 71 GM JAR TOP SCH (08:55)
[2020-04-20] MEDS: SODIUM CHLORIDE 0.9% 1,000 ML IV SCH ×3 (08:56→22:41)
[2020-04-20] MEDS: MICAFUNGIN 100 MG in SODIUM CHLORIDE 0.9% 100 ML IV SCH (11:30)
[2020-04-20] MEDS: ACETAMINOPHEN 325 MG TABLET PO PRN (15:37)
[2020-04-20] MEDS: LEVOFLOXACIN INJ 750 MG in PREMIX 1 EACH IV SCH (15:38)
[2020-04-20] MEDS: ENOXAPARIN 80 MG/0.8 ML SYRINGE SUBCUT SCH (22:26)
[2020-04-20] MEDS: INSULIN GLARGINE 100 UNIT/ML SUBCUT SCH (22:26)
[2020-04-21] MEDS: INSULIN REGULAR 100 UNIT/ML SUBCUT SCH ×4 (02:38→18:38)
[2020-04-21] MEDS: MEROPENEM 1,000 MG in SODIUM CHLORIDE 0.9% 100 ML IV SCH ×3 (02:39→18:15)
[2020-04-21 06:35] LABS: Basophils % 0.2 % (0.0-0.8); Eosinophils # 0.3 10*3/uL (0.0-0.87); Eosinophils % 4.6 % (0.00-10.9); Hematocrit 26.5 VOL% (35.7-47.0); Immature Granulocytes % 3.8 %; Immature Granulocytes Absolute 0.25 #; Lymphocytes # 1.3 10*3/uL (1.4-4.0); Lymphocytes % 20.4 % (21.3-54.2); Mean Corpuscular HGB Conc 30.2 GM/DL (32-36); Mean Corpuscular Volume 95.7 FL (87-102); Mean Platelet Volume 10.5 FL (9.6-12.0); Monocytes % 4.9 % (1.7-12.7); Neutrophils % 66.1 % (38.7-73.9); Platelet Count 217 T/CUMM (130-400); Red Blood Count 2.77 MC/CUMM (3.8-5.5); Red Cell Distribution Width 15.4 % (9.3-17.3); White Blood Count 6.5 T/CUMM (4-12)
[2020-04-21 06:57] LABS: Calcium 7.1 MG/DL (8.5-10.1); Osmolality,Calculated 280.1 MOS/KG (273-304)
[2020-04-21] MEDS ORDERED: TUBERCULIN SKIN TEST 0.1 ML SYRINGE INTRADERM ONE (08:32)
[2020-04-21] MEDS: SODIUM CHLORIDE 0.9% 1,000 ML IV SCH ×2 (09:27→11:44)
[2020-04-21] MEDS: MENTHOL/ZINC OXIDE OINT 71 GM JAR TOP SCH (09:28)
[2020-04-21] MEDS: ENOXAPARIN 80 MG/0.8 ML SYRINGE SUBCUT SCH ×2 (10:33→20:58)
[2020-04-21] MEDS: levETIRAcetam LIQUID 100 MG/ML 30 ML/BOTTLE PO SCH ×2 (10:33→21:04)
[2020-04-21] MEDS: PANTOPRAZOLE 40 MG VIAL IV SCH (10:35)
[2020-04-21] MEDS: MICAFUNGIN 100 MG in SODIUM CHLORIDE 0.9% 100 ML IV SCH (11:43)
[2020-04-21] MEDS: METOPROLOL TARTRATE 25 MG TABLET PO SCH ×2 (17:05→21:00)
[2020-04-21] MEDS ORDERED: SODIUM CHLORIDE 0.9% 250 ML IV ONE (17:28)
[2020-04-21] MEDS: ACETAMINOPHEN 325 MG TABLET PO PRN (18:20)
[2020-04-21] MEDS: ALBUTEROL/IPRATROPIUM 3 ML NEB RESP TX SCH (20:10)
[2020-04-21] MEDS: INSULIN GLARGINE 100 UNIT/ML SUBCUT SCH (20:57)
[2020-04-22] MEDS: ALBUTEROL/IPRATROPIUM 3 ML NEB RESP TX SCH ×3 (00:20→10:45)
[2020-04-22] MEDS: MEROPENEM 1,000 MG in SODIUM CHLORIDE 0.9% 100 ML IV SCH ×2 (00:24→11:27)
[2020-04-22] MEDS: INSULIN REGULAR 100 UNIT/ML SUBCUT SCH ×3 (00:24→12:44)
[2020-04-22] MEDS: SODIUM CHLORIDE 0.9% 1,000 ML IV SCH (05:24)
[2020-04-22 06:08] LABS: Basophils % 0.3 % (0.0-0.8); Eosinophils # 0.4 10*3/uL (0.0-0.87); Eosinophils % 4.5 % (0.00-10.9); Hematocrit 28.9 VOL% (35.7-47.0); Hemoglobin 9.4 GM/DL (12.0-16.0); Immature Granulocytes Absolute 0.31 #; Lymphocytes # 1.5 10*3/uL (1.4-4.0); Lymphocytes % 19.2 % (21.3-54.2); Mean Corpuscular HGB Conc 32.5 GM/DL (32-36); Mean Corpuscular Volume 93.2 FL (87-102); Mean Platelet Volume 9.6 FL (9.6-12.0); Monocytes % 4.8 % (1.7-12.7); Neutrophils % 67.2 % (38.7-73.9); Platelet Count 235 T/CUMM (130-400); Red Cell Distribution Width 15.5 % (9.3-17.3); White Blood Count 7.8 T/CUMM (4-12)
[2020-04-22 06:38] LABS: Hypochromasia 1+; Microcytosis Slight; Platelet Estimate Adequate
[2020-04-22 07:09] LABS: Calcium 7.2 MG/DL (8.5-10.1); Osmolality,Calculated 283.7 MOS/KG (273-304)
[2020-04-22] MEDS ORDERED: OMEPRAZOLE ODT 20 MG TABLET PER TUBE SCH (09:00)
[2020-04-22] MEDS: levETIRAcetam LIQUID 100 MG/ML 30 ML/BOTTLE PO SCH (09:12)
[2020-04-22] MEDS: MENTHOL/ZINC OXIDE OINT 71 GM JAR TOP SCH (09:12)
[2020-04-22] MEDS: ENOXAPARIN 80 MG/0.8 ML SYRINGE SUBCUT SCH (09:12)
[2020-04-22] MEDS: METOPROLOL TARTRATE 25 MG TABLET PO SCH (09:13)
[2020-04-22] MEDS: MICAFUNGIN 100 MG in SODIUM CHLORIDE 0.9% 100 ML IV SCH (10:16)
[2020-04-22 12:03] VITALS: BP 96/63
== END 2020-04-22 15:05 | DRG 4 ==
LOC: PREOBSVTOIN 21:41 → N.2W 21:42 → SUATTDRO 21:42 → SUPCPDRO 21:42 → N.ICU 23:51 → N.CC 03-10 10:50 → N.2E 03-10 15:29 → N.CC 03-10 23:03 → N.2E 04-17 15:47 → N.3E 04-18 13:47
PROVIDERS: ADMIT Internal Medicine; ATTEND Internal Medicine